=== PATIENT | female | born 1930 | race African-American/Black ===

== ENCOUNTER 2016-10-12 14:25 | Emergency (ER) | payer OTHER ==
[~2016-10-12] VITALS: Ht 154.9 cm; Wt 59.0 kg
--- NOTE | ~2016-10-12 | EKG ---
[place] [address] [place] [address] ELECTROCARDIOGRAM REPORT Name: CHARBEL APARICIO Room #[facility] [id number] Admission: 10/12/16 Attend Phys: Discharge: 10/12/16 Date of : 32 Report #: [id number] THIS REPORT FOR: //name// [facility] ED Test Date: 2016-10-12 Test Time: 15:08:29 Pat Name: CHARBEL APARICIO Department: Room: Gender: F [place] Attendant: Pati STARKS : 1930 Requested By: Nicolas Dahl Order Number: [id number] MD: Luis Felipe Sims Measurements Intervals [place] Rate: 76 P: 60 [place]: 170 QRS: 66 QRSD: 146 T: 12 QT: 421 QTc: 474 Interpretive Statements Sinus rhythm Right bundle branch block Baseline wander in lead(s) V1 Compared to ECG 01/14/2016 19:04:36 no significant change was found Electronically Signed On 10-13-2016 9:28:27 SEARCH PLANNER by Luis Felipe Sims [email or web address] <ELECTRONICALLY SIGNED> By: Luis Felipe Sims MD, [facility] 10/13/16 0928 1508 1508 Luis Felipe Sims MD, [facility] /EPI
[~2016-10-12 14:25] MED LIST: ALEVE220 MG PO; ALLERGY10 MG PO; ARICEPT 5 MG TAB5 MG PO; ARICEPT10 M1 PO; ASPIR 8181 M1 PO; ASPIRIN EC81 M1 PO; CIPROFLOXACIN500 M1 PO; CLARITIN10 MG PO; CLONIDINE HCL0.1 MG PO; COZAAR100 MG PO; EDARBYCLOR 40-1 EACH PO; FLEXERIL PO; HYDROCHLOROTH12.5 M1 PO; HYDROCHLOROTH12.5 M2 PO; IBUPROFEN 400400 M2 PO; IBUPROFEN 600600 M1 PO; KLOR-CON M20 PO; LEVAQUIN 500 M500 M2 PO; LEVOTHYROXINE 0.1 MG PO; LISINOPRIL10 MG PO; LOPRESSOR PO; LORTAB 5 MG/5001 TA1 PO; MICARDIS40 MG PO; MOBIC15 MG PO; OXYBUTYNIN 5 MG5 M2 PO; OXYCODONE HCL 55 MG PO; PHENERGAN 25 MG25 M1 PO; PYRIDIUM200 MG PO; ROBAXIN 750 MG750 M1 PO; SPIRONOLACT/HCT1 TA1; SPIRONOLACTONE25 M1 PO; SYNTHROID100 MCG PO; TENORMIN25 MG PO; TIZANIDINE HCL 22 M1 PO; TIZANIDINE HCL 22 MG PO; TRAMADOL 50 MG50 MG PO; TRIAMTERENE-HC1 EAC3 PO; TYLENOL325 MG PO; ZANAFLEX4 MG PO; ZOVIRAX400 MG PO; [UNRECOGNIZED DRUG - OTHER] TP
[2016-10-12] MEDS ORDERED: MICARDIS40 MG PO (16:19)
[2016-10-12] MEDS ORDERED: ASPIR 8181 MG PO (16:19)
[2016-10-12] MEDS ORDERED: ATENOLOL 25 MG25 M1 PO (16:20)
[2016-10-12 16:39] LABS: URINE BLOOD 2+ (Negative); URINE COLOR YELLOW; URINE GLUCOSE-RANDOM* NEGATIVE (Negative); URINE KETONES 1+ (Negative); URINE NITRITE NEGATIVE (Negative); URINE PROTEIN (DIPSTICK) 3+ (Negative); URINE SPECIFIC GRAVITY >= 1.030 (1.003-1.035)
[2016-10-12 16:46] LABS: ICTOTEST (BILI CONFIRMATORY) Negative (Negative); URINE BILIRUBIN NEGATIVE (Negative)
[2016-10-12 16:53] LABS: CASTS None Seen /LPF (None Seen); CRYSTALS None Seen /LPF (None Seen); SQUAMOUS 0-3 Few /LPF (0-3)
[2016-10-12 16:54] LABS: BACTERIA 1-9 Few /HPF (None Seen); URINE RBC 0-2 Rare /HPF (0-2); URINE WBC 0-5 Rare /HPF (0-5)
[2016-10-12 17:54] LABS: ABSOLUTE NEUTROPHILS 10.4 thou/uL (1.4-8.2); BASOPHILS 0.4 % (0.0-2.0); HEMATOCRIT 35.5 % (37.0-47.0); HEMOGLOBIN 11.9 gm/dL (12.0-15.0); LYMPHOCYTES 10.1 % (24.0-44.0); MCH 29.1 pg (26.0-34.0); MCHC 33.4 % (28.0-37.0); MCV 87.1 fL (80.0-100.0); MONOCYTES 11.9 % (1.0-8.0); PLATELET COUNT 248 thou/uL (150-400); POLYS 77.6 % (36.0-66.0); RBC 4.08 mil/uL (4.20-5.00); RDW 13.7 % (10.5-14.5); WBC 13.4 thou/uL (4.0-11.0)
[2016-10-12 17:57] LABS: MANUAL DIFF NO
[2016-10-12 18:01] LABS: ANION GAP 10 mmol/L (7-16); BUN 16 mg/dL (7-18); CALCIUM 9.2 mg/dL (8.5-10.1); CHLORIDE 97 mmol/L (98-107); CO2 26 mmol/L (21-32); CREATININE 1.1 mg/dL (0.6-1.3); GLUCOSE 89 mg/dL (70-99); POTASSIUM 3.6 mmol/L (3.5-5.1); SODIUM 133 mmol/L (136-145)
[2016-10-12 18:15] LABS: ALBUMIN 2.6 g/dL (3.4-5.0); ALKALINE PHOSPHATASE 74 U/L (46-116); MAGNESIUM 1.9 mg/dL (1.8-2.4); NT-PRO BRAIN NAT PEPTIDE 301 pg/mL (<300); SGOT 16 U/L (15-37); SGPT 18 U/L (30-65); TOTAL BILIRUBIN 0.5 mg/dL (<0.1-1.0); TOTAL PROTEIN 7.4 g/dL (6.4-8.2); TROPONIN-I < 0.04 ng/mL (<0.04-0.07)
== END 2016-10-12 19:10 | disposition home or self-care (01) ==
LOC: ER 14:25
PROVIDERS: Emergency Medicine
DX: S16.1XXA Strain of muscle, fascia and tendon at neck level, initial encounter (principal); M43.6 Torticollis; M54.2 Cervicalgia; M54.10 Radiculopathy, site unspecified; I10 Essential (primary) hypertension; E03.9 Hypothyroidism, unspecified; F03.90 Unspecified dementia, unspecified severity, without behavioral disturbance, psychotic disturbance, mood disturbance, and anxiety; Z90.710 Acquired absence of both cervix and uterus; Z88.0 Allergy status to penicillin; Z88.8 Allergy status to other drugs, medicaments and biological substances; Z88.7 Allergy status to serum and vaccine; X58.XXXA Exposure to other specified factors, initial encounter; Y93.9 Activity, unspecified; Y92.9 Unspecified place or not applicable; Y99.9 Unspecified external cause status

== ENCOUNTER 2016-10-14 12:32 | Emergency (ER) | payer OTHER ==
[~2016-10-14] VITALS: Ht 157.5 cm; Wt 59.0 kg
[~2016-10-14 12:32] MED LIST changes: +ASPIR 8181 MG PO; +ATENOLOL 25 MG25 M1 PO
[2016-10-14] MEDS ORDERED: TRAMADOL 50 MG50 MG PO (16:09)
[2016-10-14] MEDS ORDERED: SENOKOT-S1 TA1 PO (16:09)
== END 2016-10-14 16:20 | disposition home or self-care (01) ==
LOC: ER 12:32
DX: M54.12 Radiculopathy, cervical region (principal); Z90.710 Acquired absence of both cervix and uterus; I10 Essential (primary) hypertension; E03.9 Hypothyroidism, unspecified; F03.90 Unspecified dementia, unspecified severity, without behavioral disturbance, psychotic disturbance, mood disturbance, and anxiety; Z88.7 Allergy status to serum and vaccine; Z88.0 Allergy status to penicillin; Z88.8 Allergy status to other drugs, medicaments and biological substances

== ENCOUNTER 2017-03-26 17:34 | Emergency (ER) | payer OTHER ==
[~2017-03-26] VITALS: Ht 154.9 cm; Wt 59.0 kg
[~2017-03-26 17:34] MED LIST changes: +SENOKOT-S1 TA1 PO
[2017-03-26] MEDS ORDERED: VALIUM5 MG PO (20:11)
[2017-03-26] MEDS ORDERED: LIDODERM 5%1 PATC1 TRANSDERM (20:11)
== END 2017-03-26 20:31 | disposition home or self-care (01) ==
LOC: ER 17:34
DX: M62.838 Other muscle spasm (principal); Z90.710 Acquired absence of both cervix and uterus; I10 Essential (primary) hypertension; E03.9 Hypothyroidism, unspecified; F03.90 Unspecified dementia, unspecified severity, without behavioral disturbance, psychotic disturbance, mood disturbance, and anxiety; Z88.7 Allergy status to serum and vaccine; Z88.0 Allergy status to penicillin; Z88.1 Allergy status to other antibiotic agents

== ENCOUNTER 2017-09-04 14:30 | Emergency (ER) | payer OTHER ==
[~2017-09-04] VITALS: Ht 152.4 cm; Wt 61.2 kg
[~2017-09-04 14:30] MED LIST changes: +LIDODERM 5%1 PATC1 TRANSDERM; +VALIUM5 MG PO
[2017-09-04] MEDS ORDERED: SYNTHROID75 MCG PO (15:10)
[2017-09-04] MEDS ORDERED: TRAMADOL 50 MG50 MG PO (16:07)
== END 2017-09-04 16:39 | disposition home or self-care (01) ==
LOC: ER 14:30
DX: S16.1XXA Strain of muscle, fascia and tendon at neck level, initial encounter (principal); S29.012A Strain of muscle and tendon of back wall of thorax, initial encounter; I10 Essential (primary) hypertension; E03.9 Hypothyroidism, unspecified; F03.90 Unspecified dementia, unspecified severity, without behavioral disturbance, psychotic disturbance, mood disturbance, and anxiety; Z90.49 Acquired absence of other specified parts of digestive tract; Z88.7 Allergy status to serum and vaccine; Z88.8 Allergy status to other drugs, medicaments and biological substances; V43.12XA Car passenger injured in collision with other type car in nontraffic accident, initial encounter; Y93.89 Activity, other specified; Y92.89 Other specified places as the place of occurrence of the external cause; Z88.0 Allergy status to penicillin; Y99.8 Other external cause status

== ENCOUNTER 2017-11-05 15:24 | Emergency (ER) | payer OTHER ==
[~2017-11-05] VITALS: Ht 154.9 cm; Wt 62.6 kg
--- NOTE | ~2017-11-05 | EKG ---
[place] [address] [place] [address] ELECTROCARDIOGRAM REPORT Name: CHARBEL APARICIO [facility]: [facility] [id number] Admission: 11/05/17 Attend Phys: Discharge: Date of : 32 Report #: [id number] THIS REPORT FOR: //name// [facility] ED Test Date: 2017-11-05 Test Time: 16:52:44 Pat Name: CHARBEL APARICIO Department: Room: Gender: F Candy Roller: Pati RODRIGUEZ : 1930 Requested By: Radha Orlando Order Number: [id number] MD: Luis Felipe Sims Measurements Intervals [place] Rate: 62 P: 62 [place]: 174 QRS: 67 QRSD: 147 T: 36 QT: 423 QTc: 430 Interpretive Statements Sinus rhythm Right bundle branch block Compared to ECG 10/12/2016 15:08:29 No significant changes Electronically Signed On 11-05-2017 17:39:56 NON DESTRUCTIVE TESTER by Luis Felipe Sims [email or web address] <ELECTRONICALLY SIGNED> By: Luis Felipe Sims MD, [facility] 11/05/17 1739 1652 1652 Luis Felipe Sims MD, FACC /EPI
[~2017-11-05 15:24] MED LIST changes: +SYNTHROID75 MCG PO
[2017-11-05 16:28] LABS: HEMOGLOBIN 13.5 gm/dL (12.0-15.0); MCH 29.4 pg (26.0-34.0); MCHC 33.8 g/dL (28.0-37.0); RBC 4.6 mil/uL (4.20-5.00); RDW 14.4 % (10.5-14.5); WBC 11.5 thou/uL (4.0-11.0)
[2017-11-05 16:44] LABS: CALCIUM 9.7 mg/dL (8.5-10.1); CREATININE 1.3 mg/dL (0.6-1.0); POTASSIUM 3.6 mmol/L (3.5-5.1)
[2017-11-05 17:19] LABS: URINE BILIRUBIN NEGATIVE (Negative); URINE BLOOD TRACE (Negative); URINE CLARITY CLEAR; URINE COLOR YELLOW; URINE GLUCOSE-RANDOM* NEGATIVE (Negative); URINE KETONES NEGATIVE (Negative); URINE LEUKOCYTES NEGATIVE (Negative); URINE NITRITE NEGATIVE (Negative); URINE PROTEIN (DIPSTICK) 2+ (Negative); URINE SPECIFIC GRAVITY 1.025 (1.005-1.035)
[2017-11-05 17:27] LABS: BACTERIA 1-9 Few /HPF (None Seen); CASTS None Seen /LPF (None Seen); CRYSTALS None Seen /LPF (None Seen); SQUAMOUS 4-10 Moderate /LPF (0-3); URINE RBC 0-2 Rare /HPF (0-2); URINE WBC None Seen /HPF (0-5)
[2017-11-05] MEDS ORDERED: HYDROCODONE-AP1 EAC6 PO (17:40)
[2017-11-05] MEDS ORDERED: PREDNISONE 20 M20 MG PO (17:53)
[2017-11-05 18:00] VITALS: BP 111/71
== END 2017-11-05 18:01 | disposition home or self-care (01) ==
LOC: ER 15:24
PROVIDERS: Physician Assistant
DX: M25.552 Pain in left hip (principal); M25.551 Pain in right hip; M51.26 Other intervertebral disc displacement, lumbar region; M51.36 Other intervertebral disc degeneration, lumbar region; I10 Essential (primary) hypertension; E03.9 Hypothyroidism, unspecified; F03.90 Unspecified dementia, unspecified severity, without behavioral disturbance, psychotic disturbance, mood disturbance, and anxiety; Z88.0 Allergy status to penicillin; Z90.710 Acquired absence of both cervix and uterus; Z88.7 Allergy status to serum and vaccine; Z88.8 Allergy status to other drugs, medicaments and biological substances

== ENCOUNTER 2018-02-14 15:35 | Emergency (ER) | payer OTHER ==
[~2018-02-14] VITALS: Ht 154.9 cm; Wt 60.8 kg
--- NOTE | ~2018-02-14 | EKG ---
[place] [address] [facility] [place] [address] ELECTROCARDIOGRAM REPORT Name: CHARBEL APARICIO Room #: DEP Darci#: [id number] Admission: 02/14/18 Attend Phys: Discharge: 02/14/18 Date of : 32 Report #: [id number] THIS REPORT FOR: //name// [facility] ED Test Date: 2018-02-14 Test Time: 16:08:35 Pat Name: CHARBEL APARICIO Department: Room: Gender: F Transportation Broker: GWENDOLYN : 1930 Requested By: Trevin Stauffer Order Number: [id number] MD: Luis Felipe Sims Measurements Intervals [place] Rate: 56 P: 61 [place]: 183 QRS: 67 QRSD: 148 T: 35 QT: 459 QTc: 444 Interpretive Statements Sinus rhythm Right bundle branch block Compared to ECG 11/05/2017 16:52:44 No significant changes Electronically Signed On 02-15-2018 7:44:31 CDT by Luis Felipe Sims [email or web address] <ELECTRONICALLY SIGNED> By: Luis Felipe Sims MD, [facility] 02/15/18 0744 1608 1608 Luis Felipe Sims MD, FACC /EPI
[~2018-02-14 15:35] MED LIST changes: +HYDROCODONE-AP1 EAC6 PO; +PREDNISONE 20 M20 MG PO
[2018-02-14 16:14] LABS: URINE BILIRUBIN NEGATIVE (Negative); URINE BLOOD TRACE (Negative); URINE CLARITY CLEAR; URINE COLOR YELLOW; URINE GLUCOSE-RANDOM* NEGATIVE (Negative); URINE KETONES NEGATIVE (Negative); URINE LEUKOCYTES-REFLEX NEGATIVE (Negative); URINE NITRITE-REFLEX NEGATIVE (Negative); URINE PROTEIN (DIPSTICK) 2+ (Negative); URINE SPECIFIC GRAVITY >= 1.030 (1.005-1.035); URINE UROBILINOGEN 0.2 E.U./dl (0.2-1.0)
[2018-02-14 16:25] LABS: BACTERIA-REFLEX None Seen /HPF (None Seen); CASTS None Seen /LPF (None Seen); CRYSTALS None Seen /LPF (None Seen); SQUAMOUS 0-3 Few /LPF (0-3); URINE RBC 0-2 Rare /HPF (0-2); URINE WBC-REFLEX 0-5 Rare /HPF (0-5)
[2018-02-14] MEDS ORDERED: FLEXERIL PO (17:01)
== END 2018-02-14 17:30 | disposition home or self-care (01) ==
LOC: ER 15:35
PROVIDERS: Emergency Medicine
DX: M54.9 Dorsalgia, unspecified (principal); M25.511 Pain in right shoulder; I10 Essential (primary) hypertension; E03.9 Hypothyroidism, unspecified; F03.90 Unspecified dementia, unspecified severity, without behavioral disturbance, psychotic disturbance, mood disturbance, and anxiety; Z88.0 Allergy status to penicillin; Z88.8 Allergy status to other drugs, medicaments and biological substances

== ENCOUNTER 2018-03-31 13:16 | Emergency (ER) | payer OTHER ==
[~2018-03-31] VITALS: Ht 154.9 cm; Wt 59.0 kg
--- NOTE | ~2018-03-31 | EKG ---
[place] [address] [facility] [place] [address] ELECTROCARDIOGRAM REPORT Name: CHARBEL APARICIO [facility] [id number] Admission: 03/31/18 Attend Phys: Discharge: 03/31/18 Date of : 32 Report #: [id number] THIS REPORT FOR: //name// [facility] ED Test Date: 2018-03-31 Test Time: 16:05:19 Pat Name: CHARBEL APARICIO Department: Room: Gender: F Campaign Coordinator: jlambertz : 1930 Requested By: Jody Zendejas Order Number: [id number] MD: Luis Felipe Sims Measurements Intervals [place] Rate: 68 P: 69 [place]: 192 QRS: 78 QRSD: 144 T: 44 QT: 439 QTc: 467 Interpretive Statements Sinus rhythm Right bundle branch block Compared to ECG 02/14/2018 16:08:35 No significant changes Electronically Signed On 04-01-2018 7:57:20 CDT by Luis Felipe Sims [email or web address] <ELECTRONICALLY SIGNED> By: Luis Felipe Sims MD, [facility] 04/01/18 0757 1605 1605 Luis Felipe Sims MD, FACC /EPI
[2018-03-31 15:04] LABS: ABSOLUTE NEUTROPHILS 4.6 thou/uL (1.4-8.2); BASOPHILS 0.7 % (0.0-2.0); EOSINOPHILS 0.7 % (0.0-3.0); HEMATOCRIT 41.7 % (37.0-47.0); HEMOGLOBIN 13.8 gm/dL (12.0-15.0); LYMPHOCYTES 20.2 % (24.0-44.0); MCH 29.3 pg (26.0-34.0); MCV 88.8 fL (80.0-100.0); MONOCYTES 7.4 % (1.0-8.0); PLATELET COUNT 228 thou/uL (150-400); RDW 14.6 % (10.5-14.5); WBC 6.5 thou/uL (4.0-11.0)
[2018-03-31 15:18] LABS: CALCIUM 9.5 mg/dL (8.5-10.1); CREATININE 1.1 mg/dL (0.6-1.0); POTASSIUM 4.2 mmol/L (3.5-5.1)
[2018-03-31 15:22] LABS: ALBUMIN 3.5 g/dL (3.4-5.0); TOTAL BILIRUBIN 0.4 mg/dL (<0.1-1.0); TOTAL PROTEIN 7.8 g/dL (6.4-8.2)
== END 2018-03-31 16:15 | disposition home or self-care (01) ==
LOC: ER 13:16
PROVIDERS: Nurse Practitioner Family
DX: G44.209 Tension-type headache, unspecified, not intractable (principal); I10 Essential (primary) hypertension; E03.9 Hypothyroidism, unspecified; F03.90 Unspecified dementia, unspecified severity, without behavioral disturbance, psychotic disturbance, mood disturbance, and anxiety; Z90.710 Acquired absence of both cervix and uterus; Z88.7 Allergy status to serum and vaccine; Z88.0 Allergy status to penicillin; Z88.8 Allergy status to other drugs, medicaments and biological substances

== ENCOUNTER 2018-10-19 20:06 | Emergency (ER) | payer OTHER ==
[~2018-10-19] VITALS: Ht 154.9 cm; Wt 61.2 kg
[2018-10-19] MEDS ORDERED: PERCOCET 5-3251 EACH PO (20:21)
[2018-10-19 21:21] LABS: ABSOLUTE NEUTROPHILS 3.6 thou/uL (1.4-8.2); BASOPHILS 0.8 % (0.0-2.0); EOSINOPHILS 4.2 % (0.0-3.0); HEMATOCRIT 38.4 % (37.0-47.0); HEMOGLOBIN 12.9 gm/dL (12.0-15.0); LYMPHOCYTES 29.8 % (24.0-44.0); MCH 29.5 pg (26.0-34.0); MCHC 33.5 g/dL (28.0-37.0); MCV 88.2 fL (80.0-100.0); MONOCYTES 11.6 % (1.0-8.0); PLATELET COUNT 251 thou/uL (150-400); POLYS 53.6 % (36.0-66.0); RBC 4.35 mil/uL (4.20-5.00); RDW 14.8 % (10.5-14.5); WBC 6.8 thou/uL (4.0-11.0)
[2018-10-19 21:28] LABS: ANION GAP 8 mmol/L (7-16); BUN 22 mg/dL (7-18); CALCIUM 9.3 mg/dL (8.5-10.1); CHLORIDE 106 mmol/L (98-107); CO2 25 mmol/L (21-32); CREATININE 1.1 mg/dL (0.6-1.0); GLUCOSE 93 mg/dL (74-106); POTASSIUM 3.9 mmol/L (3.5-5.1); SODIUM 139 mmol/L (136-145)
[2018-10-19 21:39] LABS: ALBUMIN 3.3 g/dL (3.4-5.0); SGOT 25 U/L (15-37); SGPT 23 U/L (30-65); TOTAL BILIRUBIN 0.2 mg/dL (<0.1-1.0); TOTAL PROTEIN 7.3 g/dL (6.4-8.2); TROPONIN-I <0.06 ng/mL (<0.06)
[2018-10-19] MEDS ORDERED: ZANAFLEX2 MG PO (22:35)
[2018-10-19 22:41] VITALS: BP 156/61
--- NOTE | 2018-10-21 08:29 | EKG ---
[place] [address] [place] [address] ELECTROCARDIOGRAM REPORT Name: CHARBEL APARICIO Room #: [facility] [id number] Admission: 10/19/18 Attend Phys: Discharge: 10/19/18 Date of : 32 Report #: [id number] THIS REPORT FOR: //name// [facility] ED Test Date: 2018-10-19 Test Time: 20:29:48 Pat Name: CHARBEL APARICIO Department: Room: Gender: F Cell Attendant: JUAN : 1930 Requested By: Nisa Fatima Order Number: [id number] MD: Luis Felipe Sims Measurements Intervals [place] Rate: 79 P: 63 [place]: 172 QRS: 71 QRSD: 142 T: 32 QT: 425 QTc: 488 Interpretive Statements Sinus rhythm Right bundle branch block Compared to ECG 03/31/2018 16:05:19 No significant change was found Electronically Signed On 10-21-2018 8:29:21 LAND SURVEY TECHNICIAN by Luis Felipe Sims [email or web address] <ELECTRONICALLY SIGNED> By: Luis Felipe Sims MD, [facility] 10/21/18 0829 28 28 Luis Felipe Sims MD, FACC /EPI
== END 2018-10-19 22:51 | disposition home or self-care (01) ==
LOC: ER 20:06
PROVIDERS: Student in an Organized Health Care Education/Training Program
DX: M62.830 Muscle spasm of back (principal); I10 Essential (primary) hypertension; E03.9 Hypothyroidism, unspecified; F03.90 Unspecified dementia, unspecified severity, without behavioral disturbance, psychotic disturbance, mood disturbance, and anxiety; Z88.7 Allergy status to serum and vaccine; Z88.0 Allergy status to penicillin; Z88.8 Allergy status to other drugs, medicaments and biological substances; Z90.710 Acquired absence of both cervix and uterus

== ENCOUNTER → 2018-12-25 | Outpatient (CLI) | payer OTHER ==
[~2018-12-25] VITALS: Ht 154.9 cm; Wt 61.7 kg
[~2018-12-25] MED LIST changes: +ARICEPT10 MG PO; +NORCO 5-325 TA1 EACH PO; +PERCOCET 5-3251 EACH PO; +TELMISARTAN80 MG PO; +ZANAFLEX2 MG PO
--- NOTE | ~2018-12-25 | HPC ---
[facility] [place] [address] PAIN MANAGEMENT CONSULTATION Name: CHARBEL APARICIO [facility] [id number] Admission: 12/25/18 ������������������ Attend Phys: Jessica Woodard MD Discharge: ������������������ Date of : 32 Report #: [id number] THIS REPORT FOR: //name// CC: SOFI physician/PCP Jessica Woodard DATE OF SERVICE: 12/25/2018 CHIEF COMPLAINT: Return to the pain clinic because of low back pain. HISTORY: The patient is an 88-year-old female, who has been seen in the pain clinic in the past by Dr. Amadou Prescott. This is my first visit with the patient. She was initially seen in 2015. At that time, she has had some episodes of low back pain. She was found to have sacroiliac joint dysfunction. Also, has had some lumbar radicular symptoms. She suffers from chronic renal insufficiency. She has not been able to take nonsteroidal anti-inflammatory medications. She has had physical therapy in the past. She still tries to stay active. She went to the Emergency Room because of upper back pain, this was in October. She notes that her pain continues to wax and wane. She complained at that time about some stabbing pain under her shoulder blade. It is also felt that there was some occasional numbness in her right arm. She also has low back pain. She has a sensation in her calves of a crawling sensation. She rates her pain overall as an 8/10. At this juncture, she is not sure exactly what exacerbates it makes the pain worse. PAST MEDICAL HISTORY: 1. Hypothyroidism. 2. Dementia. 3. Bladder control problems. 4. Back problems. 5. Hypertension. PAST SURGICAL HISTORY: Hysterectomy. CURRENT MEDICATIONS: Loratadine 10 mg, lisinopril 10 mg, aspirin 81 mg chewable, atenolol 25 mg, Synthroid 75 mcg, and hydrochlorothiazide 12.5 mg. ALLERGIES: INFLUENZA VACCINES, PENICILLIN, AND AMLODIPINE. SOCIAL HISTORY: She is retired. REVIEW OF SYSTEMS: Decreased appetite, fatigue, wears glasses, ____ thyroid disease. PAIN CLINIC ASSESSMENT AND PQRS: 1. Osteoarthritis. The patient is not being treated for osteoarthritis. [facility] [address] [place] [address] PAIN MANAGEMENT CONSULTATION Name: CHARBEL APARICIO Room #: REG [facility]#: [id number] Admission: 12/25/18 ������������������ Attend Phys: Jessica Woodard MD Discharge: ������������������ Date of : 32 Report #: [id number] 2. The patient is not being treated for rheumatoid arthritis. 3. Pain intensity is 8/10. 4. Fall risk. The patient has not fallen in the last 3 months. 5. Blood thinner. The patient is not on a blood thinning medication. 6. Hypertension. The patient is being treated for hypertension. 7. Opioids greater than 6 weeks. The patient is not on a regular opioid regimen. 8. Risk for opioid, zero/low. 9. Functional assessment tool, 50/70. 10. Recreational drug use. The patient denies use of recreational drugs. 11. Tobacco. The patient has never smoked. 12. Alcohol: The patient denies use of alcoholic beverages. PHYSICAL EXAMINATION: GENERAL: The patient is a well-developed, well-nourished black female. She is accompanied by her daughter. She is alert and oriented x 3. Her daughter helps with the history. Height is 5 feet 1 inches, weight is 136 pounds, and BMI is 25.7. VITAL SIGNS: Blood pressure is 152/67, pulse is 69, respiratory rate is 16, and room air saturation is 97%. NECK: Without adenopathy or JVD. HEART: Regular rate. ABDOMEN: Nontender. EXTREMITIES: Upper extremity muscle strength is judged to be 4+/5 for the major muscle groups in the upper extremity. She complains of some pain in the shoulders as well as in the low back area. The patient is without significant scoliosis or kyphosis. LABORATORY DATA: On 08/22/2015, x-ray of lumbar spine shows lumbar spondylosis. There are subluxations at L4-L5 and L5-S1. IMPRESSION: 1. Low back pain with a sensation of crawling pain in her calves. 2. Sharp pain in the left as well as right shoulder. 3. Dementia. 4. Bladder control problems. 5. Back problems. 6. Right knee pain. 7. Degenerative joint disease, generalized. 8. Chronic glomerulonephritis. 9. Back pain, chronic. 10. Cervicalgia. 11. Neck pain. 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 13. Polymyalgia rheumatica. 14. Hypothyroidism. [address] [address] PAIN MANAGEMENT CONSULTATION Name: CHARBEL APARICIO Room #: REG CLEarlene Bejarano#: [id number] Admission: 12/25/18 ������������������ Attend Phys: Jessica Woodard MD Discharge: ������������������ Date of : 32 Report #: [id number] 15. Hypertension. RECOMMENDATIONS: We have discussed treatment options with the patient and with her daughter. We will try conservative approach and the patient has been given a script for tramadol 50 mg 1 p.o. b.i.d. Should injections be needed in the future, we can give that a try. Again, we will try the most conservative approach. Her daughter is in agreement as well as the patient. A script for tramadol has been written. We would like to thank you for letting us to participate in her care. We hope she continues to improve. ��������������������������������������������� ���������������������������������������� By: ��������������������������������������������� 2204 0721 Jessica Woodard MD /QUIN
[2018-12-25 10:16] VITALS: BP 152/67
--- NOTE | 2018-12-25 10:33 | NUR ---
Pain Clinic Assessment: 1. History of Osteoarthritis: Not Applicable History of Rheumatoid Arthritis: Not Applicable 2. Height: 5 ft. 1 in. 154.9 cm. Weight: 136.0 lb. oz. 61.689 kg. Patient's BMI: 25.7 3. Vital Signs: BP: 152/67 Pulse: 69 Resp: 16 Temp: 02 Sat: 97 ECG Mon: 4. Pain Intensity: 8 5. Fall Risk: Dizziness: N Needs help standing or walking: N Fallen in the last 3 months: N Fall risk comments: 6. Patient on Blood Thinner: None 7. History of Hypertension: Y 8. Opioid Therapy greater than 6 weeks: N Opiate Contract Signed: 9. Risk Assessment Tool Provided: 0-LOW 10. Functional Assessment Tool: 50/70 11. Recreational Drug Use: Never Drug Type: Tobacco Use: Never Smoker Tobacco Type: Amount or Packs/day: How Many Years: Alcohol Use: No Frequency: Quant:
== END ==
LOC: PAIN 07:11
DX: M19.90 Unspecified osteoarthritis, unspecified site (principal); M25.512 Pain in left shoulder; M54.2 Cervicalgia; M25.561 Pain in right knee; G89.29 Other chronic pain; N03.9 Chronic nephritic syndrome with unspecified morphologic changes; E03.9 Hypothyroidism, unspecified; I10 Essential (primary) hypertension; F03.90 Unspecified dementia, unspecified severity, without behavioral disturbance, psychotic disturbance, mood disturbance, and anxiety; G47.419 Narcolepsy without cataplexy; M35.3 Polymyalgia rheumatica; R39.81 Functional urinary incontinence; Z79.899 Other long term (current) drug therapy

== ENCOUNTER 2019-01-05 15:53 | Observation (INO) | payer OTHER ==
[~2019-01-05] VITALS: Ht 157.5 cm; Wt 61.7 kg
[2019-01-05 15:54] VITALS: BP 128/104
[2019-01-05 16:25] LABS: ABSOLUTE NEUTROPHILS 6.7 thou/uL (1.4-8.2); BASOPHILS 0.4 % (0.0-2.0); EOSINOPHILS 1.2 % (0.0-3.0); HEMATOCRIT 42.6 % (37.0-47.0); HEMOGLOBIN 13.9 gm/dL (12.0-15.0); LYMPHOCYTES 14.5 % (24.0-44.0); MCH 29.2 pg (26.0-34.0); MCHC 32.7 g/dL (28.0-37.0); MCV 89.3 fL (80.0-100.0); MONOCYTES 9.9 % (1.0-8.0); PLATELET COUNT 218 thou/uL (150-400); RBC 4.77 mil/uL (4.20-5.00); RDW 14.3 % (10.5-14.5); WBC 9.1 thou/uL (4.0-11.0)
[2019-01-05 16:28] LABS: ANION GAP 11 mmol/L (7-16); BUN 21 mg/dL (7-18); CALCIUM 10.1 mg/dL (8.5-10.1); CHLORIDE 106 mmol/L (98-107); CO2 26 mmol/L (21-32); CREATININE 1.2 mg/dL (0.6-1.0); GLUCOSE 108 mg/dL (74-106); POTASSIUM 3.7 mmol/L (3.5-5.1); SODIUM 143 mmol/L (136-145)
[2019-01-05 16:39] LABS: ALBUMIN 3.6 g/dL (3.4-5.0); SGOT 23 U/L (15-37); SGPT 19 U/L (30-65); TOTAL BILIRUBIN 0.4 mg/dL (<0.1-1.0); TOTAL PROTEIN 7.9 g/dL (6.4-8.2); TROPONIN-I <0.06 ng/mL (<0.06)
[2019-01-05 16:52] LABS: URINE BILIRUBIN NEGATIVE (Negative); URINE BLOOD TRACE (Negative); URINE CLARITY CLEAR; URINE COLOR YELLOW; URINE GLUCOSE-RANDOM* NEGATIVE (Negative); URINE KETONES NEGATIVE (Negative); URINE LEUKOCYTES NEGATIVE (Negative); URINE NITRITE NEGATIVE (Negative); URINE PROTEIN (DIPSTICK) 2+ (Negative); URINE SPECIFIC GRAVITY >= 1.030 (1.005-1.035); URINE UROBILINOGEN 0.2 E.U./dl (0.2-1.0)
[2019-01-05 17:02] LABS: HYALINE CASTS 0-3 Few /LPF (None Seen); MUCUS >6 Heavy strn/LPF (None Seen); SQUAMOUS 0-3 Few /LPF (0-3)
[2019-01-05 17:03] LABS: BACTERIA None Seen /HPF (None Seen); CRYSTALS None Seen /LPF (None Seen); URINE RBC None Seen /HPF (0-2); URINE WBC 0-5 Rare /HPF (0-5)
[2019-01-05 18:05] VITALS: BP 135/75
[2019-01-05 18:38] VITALS: BP 138/54
--- NOTE | 2019-01-06 01:03 | EKG ---
[place] [address] [facility] [place] [address] ELECTROCARDIOGRAM REPORT Name: CHARBEL APARICIO Room #: 429-P [facility] M.R.#: [id number] ������������������ Admission: 01/05/19 ������������������ Attend Phys: Albert Earl MD Discharge: ������������������ Date of : 32 Report #: [id number] ����������������������������������������������������������������� [id number] THIS REPORT FOR: //name// [facility] ED Test Date: 2019-01-05 Test Time: 16:12:28 Pat Name: CHARBEL APARICIO Department: Room: 429 Gender: F Catalyst Operator: JULIO : 1930 Requested By: Yasemin Hairston Order Number: [id number] MD: Oskar Bowen Measurements Intervals [place] Rate: 72 P: 75 [place]: 169 QRS: 80 QRSD: 144 T: 35 QT: 439 QTc: 481 Interpretive Statements Sinus rhythm Right bundle branch block Nonspecific ST/T wave changes Compared to ECG 10/19/2018 20:29:48 no significant changes Electronically Signed On 01-06-2019 1:02:50 CDT by Oskar Bowen [email or web address] ��������������������������������������������� <ELECTRONICALLY SIGNED> ���������������������������������������� By: Oskar Bowen MD ��������������������������������������������� 01/06/19 0102 11 11 Oskar Bowen MD /EPI
--- NOTE | 2019-01-06 02:17 | NUR ---
PT ARRIVED ON UNIT FROM ER AT 1830. COMES FROM HOME WITH DAUGHTER. ADMITTED AFTER A SYNCOPAL EPISODE AT HOME. DENIES PAIN. WALKED TO THE BATHROOM WITH ASSIST TIMES ONE HOWEVER ON WAY BACK FROM BATHROOM HER LEGS DID BUCKLE SLIGHTLY. A&O BUT FORGETFUL DUE TO DEMENTIA. RESTING COMFORTABLY. NO NEEDS VOICED. CALL LIGHT WITHIN REACH. WILL CONTINUE TO PROVIDE FREQUENT OBSERVATION.
[2019-01-06 03:19] VITALS: BP 133/70
[2019-01-06 05:27] LABS: HEMATOCRIT 36.9 % (37.0-47.0); HEMOGLOBIN 12.2 gm/dL (12.0-15.0); MCH 29.2 pg (26.0-34.0); MCHC 33.2 g/dL (28.0-37.0); MCV 88.1 fL (80.0-100.0); RBC 4.19 mil/uL (4.20-5.00); RDW 14.4 % (10.5-14.5); WBC 8.1 thou/uL (4.0-11.0)
[2019-01-06 05:43] LABS: CALCIUM 9.2 mg/dL (8.5-10.1); CREATININE 1.1 mg/dL (0.6-1.0); POTASSIUM 3.9 mmol/L (3.5-5.1); TOTAL BILIRUBIN 0.4 mg/dL (<0.1-1.0); TOTAL PROTEIN 6.7 g/dL (6.4-8.2)
[2019-01-06 08:04] VITALS: BP 145/80
--- NOTE | 2019-01-06 12:00 | NUR ---
ASSESSMENT-PT LIVES AT HOME WITH HER YOUNGEST DTR. PT SAYS SHE HAS 5 DTRS AND 3 SONS IN THE AREA. SHE SAYS HER GIRLS ARE ALWAYS TRYING TO TELL HER WHAT SHE CAN AND CANNOT DO. PT WALKS ON HER OWN AND DOES HER OWN ADLS. PT DOES NOT DRIVE. SHE HAS HAD CHCS IN THE PAST. THEY LIVE IN A SPLIT LEVEL HOME. PT SAYS SHE DOES HER OWN LAUNDRY WHICH IS LOCATED IN THE GARAGE DOWN 4-5 STEPS. HER DTRS DO THE MAJORITY OF THE COOKING. PT VOICES NO DC NEEDS AT THIS TIME. FOLLOWING TO ASSIST WITH DC PLANNING.
[2019-01-06] MEDS ORDERED: TYLENOL EXTRA500 MG PO (12:22)
[2019-01-06] MEDS ORDERED: MICARDIS40 MG PO (12:22)
[2019-01-06 13:38] LABS: PROT/CREAT RATIO 0.4; URINE CREATININE-RANDOM* 182.7 mg/dL; URINE PROTEIN-RANDOM* 66.7 mg/dL (<11.9)
[2019-01-06 15:14] VITALS: BP 145/80
--- NOTE | 2019-01-06 15:16 | NUR ---
PT. DISCHARGING TODAY TO HOME WITH HH. NOTIFIED WILLIAM AT [facility] OF REFERRAL AND SHE CAN ACCEPT PT. DC ORDERS/SUMMARY TO [facility] AND WILLIAM IN ADM WILL NOTIFY PT. TIME OF VISITS.
[2019-01-06 15:46] VITALS: BP 145/80
--- NOTE | 2019-01-08 11:20 | HC ---
[facility] [place] [address] CONSULTATION Name: CHARBEL APRAICIO Room #: 429-P [facility].#: [id number] Admission: 01/05/19 ������������������ Attend Phys: Albert Earl MD Discharge: 01/06/19 ������������������ Date of : 32 Report #: [id number] THIS REPORT FOR: //name// CC: Albert Lay DATE OF SERVICE: 01/06/2019 NEPHROLOGY CONSULTATION: REASON FOR CONSULTATION: Chronic kidney disease. HISTORY OF PRESENT ILLNESS: The patient followed in our office by Dr. 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 She was admitted with a presyncopal episode of nausea and vomiting after being in a hot stuffy car earlier in the day post-evangelical. PAST MEDICAL HISTORY: Includes chronic kidney disease, membranous nephropathy, hypertension and dementia. FAMILY HISTORY: Unreliable. 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 HOME MEDICATIONS: As listed include 81 mg aspirin daily, donepezil 10 mg daily, hydrochlorothiazide 12.5 mg daily, hydrocodone, Synthroid 75 mcg daily, telmisartan 80 mg daily, Zanaflex 2 mg q. 8 hours p.r.n., tramadol 50 mg q. 6 p.r.n. pain. REVIEW OF SYSTEMS: GENERAL: Difficult due to her being a poor historian. EYES: Her vision appears to be okay. ENT: Hearing okay, swallows okay. Denies mouth sores. ENDOCRINE: No diabetes. RESPIRATORY: Denies shortness of air, pleuritic pain. CARDIAC: Denies chest pain, angina or arrhythmias. GASTROINTESTINAL: Apparently, did have a spell of vomiting yesterday. No nausea at the current time. GENITOURINARY: Good urinary stream. NEUROLOGIC: She has dementia, but apparently is up and about. MUSCULOSKELETAL: She has chronic low back pain. PHYSICAL EXAMINATION: GENERAL: This is a reasonably well-appearing elderly patient in [address] [place] [address] CONSULTATION Name: CHARBEL APARICIO Room #: 429-P [facility] M..#: [id number] Admission: 01/05/19 ������������������ Attend Phys: Albert Earl MD Discharge: 01/06/19 ������������������ Date of : 32 Report #: [id number] distress. SKIN: Unremarkable. SKELETAL: Well developed, well nourished. No amputations. HEENT: Extraocular movements are full. No scleral icterus. Hearing and vision intact. Mucous membranes moist. Tongue, buccal mucosa are benign.: Supple without carotid bruits. CHEST: Clear to auscultation. HEART: Regular. ABDOMEN: Soft and nontender. EXTREMITIES: Show no peripheral edema. NEUROLOGIC: Shows just confusion, moves all extremities and sensory, motor examination is symmetric. LABORATORY DATA: Creatinine is 1.2, EGFR about 55. Urinalysis did show 2+ proteinuria. ASSESSMENT: 1. Presyncopal episode. Medications may need adjustment. This could simply be a reaction to getting overheated and volume depleted. She seems to be doing better today. 2. Dementia. 3. Chronic kidney disease, possibly has membranous nephropathy. I will review office records. We will check urine protein studies. 4. History of hypertension. ��������������������������������������������� <ELECTRONICALLY SIGNED> ���������������������������������������� By: Mark Torres MD ��������������������������������������������� 01/08/19 1120 0858 0326 Mark Torres MD /nt
--- NOTE | 2019-01-14 19:48 | H ---
[facility] [place] [address] [place] [address] HISTORY AND PHYSICAL Name: CHARBEL APARICIO Room #: 429-P [facility] Joe Bejarano#: [id number] Admission: 01/05/19 ������������������ Attend Phys: Albert Earl MD Discharge: 01/06/19 ������������������ Date of : 32 Report #: [id number] THIS REPORT FOR: //name// CC: Albert Lay DATE OF SERVICE: 01/05/2019 REASON FOR ADMISSION: Syncope. REASON FOR PRESENTATION: Syncope. HISTORY OF PRESENT ILLNESS: This is an 88-year-old with history of dementia, hypertension, membranous nephropathy with chronic kidney disease. She was at christianity today. She then stopped by a grocery store with her daughter. She waited for about 10 minutes and she waited in the car under the current weather condition. She felt somewhat warm. Then, she went home and was on the couch. While in the couch, she did not feel good. She then had an episode of vomiting and blacked out. Family brought her to the Emergency Room. She denies any history of chest pain. No shortness of breath. No numbness or weakness in any part of her body. No neurological symptoms. No cardiac symptoms. No upper respiratory tract infection symptoms. This is the first time that this happened to her. In terms of medical problems, she is known to have dementia, thyroid problems, membranous nephropathy and is followed by Dr. Jaki Chacon in the clinic. She is maintained on hydrochlorothiazide, olmesartan or telmisartan. She was recently switched from atenolol to metoprolol. No other new changes in the medications. She was incontinent of bowel during the syncopal episode. She does not have any previous cardiac history. PAST MEDICAL HISTORY: 1. Hypertension. 2. Hypothyroid: 3. Post hysterectomy. 4. Membranous nephropathy. 5. Chronic kidney disease. PAST SURGICAL HISTORY: 1. Temporal artery biopsy. 2. Multiple EGDs and colonoscopies. SOCIAL HISTORY: She is independent. No drug or alcohol abuse. 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 MEDICATIONS: 1. Aricept. 2. Tizanidine. [facility] [address] [place] [address] HISTORY AND PHYSICAL Name: CHARBEL APARICIO Room #: 429-P [facility] Joe Bejarano#: [id number] Admission: 01/05/19 ������������������ Attend Phys: Albert Earl MD Discharge: 01/06/19 ������������������ Date of : 32 Report #: [id number] 3. Aspirin. 4. Hydrocodone. 5. Levothyroxine. 6. Telmisartan. 7. Hydrochlorothiazide. REVIEW OF SYSTEMS: GENERAL: No fever or chills. CARDIOVASCULAR: No chest pain or palpitation. GASTROINTESTINAL: Significant for vomiting. Also, lost her sphincter control over the bowel. GENITOURINARY: No frequency, no urgency. She does have incontinence of her bladder for a long time and this is not new. NEUROLOGICAL: As per history of present illness. PHYSICAL EXAMINATION: VITAL SIGNS: Temperature is 37.4, pulse is 70, blood pressure is 135/75. HEAD AND NECK: No bruit, no thyromegaly. CHEST: Decreased air entry bilaterally, but no crackles. CARDIOVASCULAR: No rub detected. Regular. No murmur. ABDOMEN: Soft, nontender with no hepatosplenomegaly. EXTREMITIES: Lower extremities, no edema. LABORATORY DATA: Essentially nonremarkable CBC. Chemistry with a creatinine of 1.2. Urine with +2 protein. ASSESSMENT, IMPRESSION AND PLAN: 1. Syncope. 2. Hypertension. 3. Membranous nephropathy. 4. Dementia. 5. Hypothyroid. 6. The symptoms are not really specific and this could be due to so many reasons. EKG and troponins are negative so far. We will proceed with a CT of the head. 7. If needed, I will consult Cardiology and Neurology for her syncope. 8. Watch blood pressure and resume telmisartan for her membranous nephropathy. 9. Resume hydrochlorothiazide. 10. I will keep off the metoprolol for now given the fact that her blood pressure is under control with two agents. She was recently switched from atenolol to metoprolol and we [place] [address] HISTORY AND PHYSICAL Name: CHARBEL APARICIO Room #: 429-P ST[facility] Bejarano#: [id number] Admission: 01/05/19 ������������������ Attend Phys: Albert Earl MD Discharge: 01/06/19 ������������������ Date of : 32 Report #: [id number] 11. Full code. 12. Routine deep vein thrombosis and proton pump inhibitor prophylaxis. ��������������������������������������������� <ELECTRONICALLY SIGNED> ���������������������������������������� By: Cielo Chauhan MD ��������������������������������������������� 01/14/19 1948 1753 1824 Cielo Chauhan MD /nt
== END 2019-01-06 18:28 | disposition home or self-care (01) ==
LOC: ER 15:53 → EROBS 17:38 → 4E 18:38 → ENTRNSPT 01-06 16:48 → 4E 01-06 18:28
PROVIDERS: Hospitalist; Internal Medicine Nephrology; Physician Assistant; ADMIT Internal Medicine
DX: R55 Syncope and collapse (principal); I12.9 Hypertensive chronic kidney disease with stage 1 through stage 4 chronic kidney disease, or unspecified chronic kidney disease; N18.9 Chronic kidney disease, unspecified; F03.90 Unspecified dementia, unspecified severity, without behavioral disturbance, psychotic disturbance, mood disturbance, and anxiety; E03.9 Hypothyroidism, unspecified; Z90.710 Acquired absence of both cervix and uterus; Z98.890 Other specified postprocedural states; Z79.82 Long term (current) use of aspirin; Z79.899 Other long term (current) drug therapy; Z88.0 Allergy status to penicillin; Z88.8 Allergy status to other drugs, medicaments and biological substances

== ENCOUNTER 2019-04-07 09:13 | Emergency (ER) | payer OTHER ==
[~2019-04-07] VITALS: Ht 152.4 cm; Wt 59.0 kg
[~2019-04-07 09:13] MED LIST changes: +CAPZASIN-HP42.5 GM TOP; +TYLENOL EXTRA500 MG PO
[2019-04-07] MEDS ORDERED: LOPRESSOR25 (09:58)
[2019-04-07] MEDS ORDERED: NEURONTIN 300300 M1 PO (09:59)
[2019-04-07 11:08] VITALS: BP 128/81
[2019-04-09] MEDS ORDERED: CLONIDINE0.1 PO (09:26)
[2019-04-09] MEDS ORDERED: TRAMADOL 50 MG50 MG PO (09:33)
== END 2019-04-07 11:34 | disposition home or self-care (01) ==
LOC: ER 09:13
DX: M54.12 Radiculopathy, cervical region (principal); I10 Essential (primary) hypertension; E03.9 Hypothyroidism, unspecified; F03.90 Unspecified dementia, unspecified severity, without behavioral disturbance, psychotic disturbance, mood disturbance, and anxiety; Z88.7 Allergy status to serum and vaccine; Z88.0 Allergy status to penicillin; Z88.8 Allergy status to other drugs, medicaments and biological substances; Z90.710 Acquired absence of both cervix and uterus

== ENCOUNTER → 2019-04-09 | Outpatient (CLI) | payer OTHER ==
[~2019-04-09] VITALS: Ht 152.4 cm; Wt 61.1 kg
[~2019-04-09] MED LIST changes: +CLONIDINE0.1 PO; +LOPRESSOR25; +NEURONTIN 300300 M1 PO
--- NOTE | ~2019-04-09 | HPC ---
[facility] [place] [address] PAIN MANAGEMENT CONSULTATION Name: CHARBEL APARICIO Room #: REG [facility].#: [id number] Admission: 04/09/19 ������������������ Attend Phys: Jessica Woodard MD Discharge: ������������������ Date of : 32 Report #: [id number] THIS REPORT FOR: //name// CC: Jessica Lay DATE OF SERVICE: 04/09/2019 CHIEF COMPLAINT: Pain in the right hand. HISTORY: The patient is an 89-year-old female who has been seen in the pain clinic because of low back pain. She underwent an epidural steroid injection and has noted improvement in that area. She states that a few months ago, she was in the hospital. An attempt of IV on the right side was unsuccessful. After loss of success the left arm was cannulated since that time. The patient has had some pain and discomfort involving the right hand. From the wrist area down to the dorsum of her arm, she has noted some swelling. This is very sensitive to touch. She is not sure whether or not there has been significant sweating or color change. She notes that it is uncomfortable when she moves it. Has some difficulty moving her fingers because of the discomfort. I am not sure that there is a burning component to it, but it is extremely uncomfortable. She uses her left hand, primarily though she is right-handed. She rates the pain as a 10/10. It is very intense. She has been using gabapentin 300 mg, but only at night. She has used tramadol. She is not sure that this provides a significant amount of pain relief. She has come to the pain clinic because of the severity of pain she is experiencing in her right arm as well as the swelling that has taken place. ALLERGIES: INFLUENZA VACCINES, PENICILLIN, AMLODIPINE. CURRENT MEDICATIONS: Neurontin 300 mg at bedtime, Lopressor 25 mg b.i.d., Tylenol Extra Strength 500 mg, Micardis 40 mg, Zanaflex 2 mg p.r.n. muscle spasms, Synthroid 75 mcg, aspirin 81 mg, Claritin 10 mg. PAIN CLINIC ASSESSMENT/PQRS: 1. The patient is not being treated for osteoarthritis. 2. Pain intensity 06/26. 3. Fall risk. The patient has not fallen in the last 3 months. 4. Blood thinner. The patient is not on a blood thinning medication. 5. Hypertension. The patient is being treated for hypertension. 6. Opioids greater than 6 weeks. The patient is not on a regular opioid regimen. 7. Risk assessment tool, low risk for opioid use. 8. Functional assessment tool 5090. 9. Recreational drug use. The patient denies use of recreational drugs. 10. Alcohol: The patient denies frequent use of alcoholic beverages. [facility] [address] [place] [address] PAIN MANAGEMENT CONSULTATION Name: CHARBEL APARICIO [id number] Admission: 04/09/19 ������������������ Attend Phys: Jessica Woodard MD Discharge: ������������������ Date of : 32 Report #: [id number] PHYSICAL EXAMINATION: GENERAL: The patient is a very pleasant, well-developed, well-nourished black female, appears her stated age. She is alert and oriented x 3. Her affect is appropriate. Speech is fluent. HEENT: Normocephalic, atraumatic. Extraocular eye muscles intact. Sclerae nonicteric. Mucous membranes are moist. NECK: Without adenopathy or JVD. HEART: Regular rate. ABDOMEN: Nontender. EXTREMITIES: Upper extremity muscle strength judged to be 4+/5 on the left. The patient's right arm was placed in her lab. It is being guarded by the left hand. There is swelling associated with this from the wrist to the dorsum of her hand and some slight swelling down into her fingers. Light touch on the ulnar as well as the radial side causes the patient to pull away in the pain and ____. She lifts her right arm with the assistance of the left arm in the mid forearm area. She continues to keep it in a guarded position. Complains of increasing pain and discomfort and movement of her fingers. She is unable to grasp and touch her fingers to her thumb. There is no change in hair pattern as compared to the contralateral side. There is no significant sweating noted. There is no significant color change noted. The patient is not complaining directly of pain, but of a burning pain, but generalized pain. The patient had been wearing a compression garment on her hand, but it is very uncomfortable to put that on at this point. Lower extremity muscle strength judged to be 5-/5 for the major muscle groups in the lower extremity. IMPRESSION: 1. Right hand pain and swelling possibly sympathetically maintained. 2. Dementia. 3. Bladder control problems. 4. Back problems. 5. Right knee pain. 6. Degenerative joint disease. 7. Chronic glomerulonephritis, cervicalgia. 8. Neck pain. 9. Narcolepsy. 10. Polymyalgia rheumatica. 11. Hypothyroidism. 12. Hypertension. RECOMMENDATIONS: We discussed treatment options with the patient. She is quite obviously in severe pain. She requires help removing her jacket. She does complain of pain with her right arm. She guards it as much as possible. Keeps it in an area near her chest. Has some evidence of increased sensitivity to light touch/allodynia. No significant sweating, burning, skin changes/hair changes are noted compared to the contralateral side. There is a significant [facility] [address] [place] [address] PAIN MANAGEMENT CONSULTATION Name: CHARBEL APARICIO Room #: REG CLI ..#: [id number] Admission: 04/09/19 ������������������ Attend Phys: Jessica Woodard MD Discharge: ������������������ Date of : 32 Report #: [id number] amount of swelling. We discussed the treatment possibilities with the patient and her daughter. At this point, we will try a conservative approach. We will have the patient try clonidine to see whether or not this would help with the swelling that is involving her hand. Sometimes reflex sympathetic dystrophy can cause a change in blood flow. We will have the patient slowly increase her gabapentin from 300 mg at bedtime to 300 mg b.i.d. with the thought of increasing it to 300 mg t.i.d. if the patient is able to tolerate it. We will have her try TENS unit to see whether or not this would be helpful. Possibility of a sympathetic nerve block as a possible option. We will have the patient continue to use tramadol to help with the pain as much as possible. She will call us if she has any concerns. We would like to thank you for letting us participate in her care. We hope she continues to improve. ��������������������������������������������� ���������������������������������������� By: ��������������������������������������������� [id number] Jessica Woodard MD /nt
[2019-04-09 08:47] VITALS: BP 174/92
--- NOTE | 2019-04-09 08:51 | NUR ---
Pain Clinic Assessment: 1. History of Osteoarthritis: Not Applicable History of Rheumatoid Arthritis: Not Applicable 2. Height: 5 ft. 0 in. 152.4 cm. Weight: 134.8 lb. oz. 61.145 kg. Patient's BMI: 26.3 3. Vital Signs: BP: 174/92 Pulse: 69 Resp: 16 Temp: 02 Sat: 95 ECG Mon: 4. Pain Intensity: 10 5. Fall Risk: Dizziness: N Needs help standing or walking: N Fallen in the last 3 months: N Fall risk comments: 6. Patient on Blood Thinner: None 7. History of Hypertension: Y 8. Opioid Therapy greater than 6 weeks: N Opiate Contract Signed: 9. Risk Assessment Tool Provided: 0-LOW 10. Functional Assessment Tool: 50/70 11. Recreational Drug Use: Never Drug Type: Tobacco Use: Never Smoker Tobacco Type: Amount or Packs/day: How Many Years: Alcohol Use: No Frequency: Quant:
== END ==
LOC: PAIN 06:47
DX: M54.5 Low back pain (principal); M79.641 Pain in right hand; M25.561 Pain in right knee; M19.90 Unspecified osteoarthritis, unspecified site; F03.90 Unspecified dementia, unspecified severity, without behavioral disturbance, psychotic disturbance, mood disturbance, and anxiety; M54.2 Cervicalgia; N03.9 Chronic nephritic syndrome with unspecified morphologic changes; G47.419 Narcolepsy without cataplexy; M35.3 Polymyalgia rheumatica; E03.9 Hypothyroidism, unspecified; I10 Essential (primary) hypertension; Z88.0 Allergy status to penicillin; Z88.7 Allergy status to serum and vaccine; Z88.8 Allergy status to other drugs, medicaments and biological substances; Z79.82 Long term (current) use of aspirin; Z79.899 Other long term (current) drug therapy

== ENCOUNTER 2019-04-18 19:21 | Inpatient (IN) | payer OTHER ==
[~2019-04-18] VITALS: Ht 154.9 cm; Wt 61.7 kg
[2019-04-18 19:47] VITALS: BP 101/49
[2019-04-18] MEDS ORDERED: TELMISARTAN80 MG PO (20:26)
[2019-04-18 20:27] LABS: HEMATOCRIT 32.3 % (37.0-47.0); HEMOGLOBIN 10.6 gm/dL (12.0-15.0); MCH 29.4 pg (26.0-34.0); MCHC 32.9 g/dL (28.0-37.0); MCV 89.2 fL (80.0-100.0); PLATELET COUNT 326 thou/uL (150-400); RBC 3.62 mil/uL (4.20-5.00); RDW 14.8 % (10.5-14.5); WBC 13.2 thou/uL (4.0-11.0)
[2019-04-18 20:35] LABS: URINE BILIRUBIN NEGATIVE (Negative); URINE BLOOD TRACE (Negative); URINE CLARITY CLEAR; URINE COLOR YELLOW; URINE GLUCOSE-RANDOM* NEGATIVE (Negative); URINE KETONES NEGATIVE (Negative); URINE LEUKOCYTES-REFLEX NEGATIVE (Negative); URINE NITRITE-REFLEX NEGATIVE (Negative); URINE PROTEIN (DIPSTICK) 2+ (Negative); URINE SPECIFIC GRAVITY 1.025 (1.005-1.035)
[2019-04-18 20:35] LABS: CALCIUM 9.3 mg/dL (8.5-10.1); CREATININE 1.4 mg/dL (0.6-1.0); POTASSIUM 4.1 mmol/L (3.5-5.1)
[2019-04-18 20:41] LABS: ALBUMIN 2.3 g/dL (3.4-5.0); TOTAL BILIRUBIN 0.4 mg/dL (<0.1-1.0); TOTAL PROTEIN 7.5 g/dL (6.4-8.2)
[2019-04-18 20:45] LABS: CASTS None Seen /LPF (None Seen); SQUAMOUS None Seen /LPF (0-3); URINE RBC 0-2 Rare /HPF (0-2); URINE WBC-REFLEX 6-15 Few /HPF (0-5)
[2019-04-18 20:46] LABS: AMORPHOUS URATES Many /LPF (None Seen); BACTERIA-REFLEX None Seen /HPF (None Seen)
[2019-04-18 20:56] LABS: ABSOLUTE NEUTROPHILS 8.7 thou/uL (1.4-8.2)
[2019-04-18 21:36] VITALS: BP 136/68
[2019-04-18 21:53] VITALS: BP 136/68
[2019-04-18 22:35] VITALS: BP 141/76
--- NOTE | 2019-04-19 00:32 | NUR ---
NEW ADMISSION AT AROUND 2200. PATIENT AOX4 MAKES NEEDS KNOWN. PATIENT HAS EDEMA ON LLE. PATIENT HAD SEVERE PAIN ON LLE AND BACK, PAIN 10, TO THE SCALE OF 0-10, 10 BEING THE WORST. PAIN MEDS GIVEN PER . PATIENT IN BED ASLEEP AT THIS TIME NO S/S OF PAIN OR DISCOMFORT. PATIENT NEEDS X2 ASSISTANCE WITH ADL, BED MOBILITY, TRANSFER AND TOILETING D/T PATIENT BEING UNABLE TO AMBULATE. DAUGHTER AT BEDSIDE AND HELPED WITH ADMISSION ASSESSMENT. PATIENT SKIN IS WARM AND INTACT, NO BRUISES. FALL PRECAUTION IN PLACE.PATIENT IN BED ASLEEP AT THIS TIME BREATHING REGULAR AND UNLABOURED.
[2019-04-19 05:07] VITALS: BP 128/60
[2019-04-19 05:07] LABS: HEMATOCRIT 30.6 % (37.0-47.0); HEMOGLOBIN 10.1 gm/dL (12.0-15.0); MCH 28.9 pg (26.0-34.0); MCHC 32.8 g/dL (28.0-37.0); MCV 87.9 fL (80.0-100.0); RBC 3.48 mil/uL (4.20-5.00); RDW 14.3 % (10.5-14.5); WBC 10.1 thou/uL (4.0-11.0)
[2019-04-19 05:19] LABS: POTASSIUM 4.2 mmol/L (3.5-5.1)
[2019-04-19 07:41] VITALS: BP 157/79
--- NOTE | 2019-04-19 18:39 | NUR ---
PT STABLE THROUGHOUT SHIFT. PT UP TO CHAIR THROUGHOUT SHIFT. NO C/O PAIN, SOA OR N/V. PT'S FAMILY IN THROUGHOUT DAY. PT RESTING COMFORTABLY, FALLS PRECAUTIONS IN PLACE.
[2019-04-19 20:20] VITALS: BP 122/45
[2019-04-20 04:18] LABS: HEMATOCRIT 30.1 % (37.0-47.0); HEMOGLOBIN 9.9 gm/dL (12.0-15.0); MCH 28.9 pg (26.0-34.0); MCHC 32.9 g/dL (28.0-37.0); MCV 87.9 fL (80.0-100.0); RBC 3.43 mil/uL (4.20-5.00); RDW 14.3 % (10.5-14.5); WBC 9.2 thou/uL (4.0-11.0)
[2019-04-20 04:27] LABS: CALCIUM 8.6 mg/dL (8.5-10.1); POTASSIUM 4.2 mmol/L (3.5-5.1)
--- NOTE | 2019-04-20 05:46 | NUR ---
Pt. rested quietly at intervals during the night when checked on during frequent rounds. She is assitance of two to the bedside comode. She c/o generalized pain and was given po pain med (see emar) with some relief noted. Bed alarm is on.
[2019-04-20 09:00] VITALS: BP 153/69
--- NOTE | 2019-04-20 15:17 | EKG ---
[address] [place] [address] ELECTROCARDIOGRAM REPORT Name: CHARBEL APARICIO Room #: 450-P ADM IN M.R.#: [id number] Admission: 04/18/19 Attend Phys: Felix Dale MD Discharge: Date of : 32 Report #: [id number] THIS REPORT FOR: //name// [facility] ED Test Date: 2019-04-18 Test Time: 19:56:19 Pat Name: CHARBEL APARICIO Department: Room: 450 Gender: F Head Of Data: viktor : 1930 Requested By: Maury Smart Order Number: [id number] MD: Luis Felipe Sims Measurements Intervals [place] Rate: 61 P: 56 MD: 166 QRS: 55 QRSD: 143 T: 25 QT: 443 QTc: 447 Interpretive Statements Sinus rhythm Right bundle branch block Compared to ECG 01/05/2019 16:12:28 No significant change was found Electronically Signed On 04-20-2019 15:17:25 CDT by Luis Felipe Sims [email or web address] <ELECTRONICALLY SIGNED> By: Luis Felipe Sims MD, [facility] 04/20/19 1517 55 55 Luis Felipe Sims MD, [facility] /EPI
[2019-04-20 16:02] VITALS: BP 134/68
--- NOTE | 2019-04-20 16:41 | NUR ---
PT STABLE THROUGHOUT SHIFT. PT UP TO CHAIR FOR MOST OF SHIFT WHICH SHE TOLERATED VERY WELL. FAMILY AT BEDSIDE THROUGHOUT DAY. NO C/O [place]AK, SOA OR N/V. FALLS PRECAUTIONS IN PLACE, PT RESTING COMFORTABLY.
[2019-04-20 19:13] VITALS: BP 154/71
[2019-04-21 03:55] VITALS: BP 151/71
--- NOTE | 2019-04-21 04:21 | NUR ---
Pt. rested quietly at intervals during the night when checked on during frequent rounds. She was assisted to the bedside comode with a gait belt and two person assist. No c/o pain. Sacral abrasion noted and wound pro- tocal initiated. Bed alarm is on.
[2019-04-21 05:48] LABS: HEMATOCRIT 28.3 % (37.0-47.0); HEMOGLOBIN 9.3 gm/dL (12.0-15.0); MCV 87.6 fL (80.0-100.0); RBC 3.23 mil/uL (4.20-5.00)
[2019-04-21 05:51] LABS: MCH 28.8 pg (26.0-34.0); MCHC 32.9 g/dL (28.0-37.0); RDW 14.1 % (10.5-14.5); WBC 16.4 thou/uL (4.0-11.0)
[2019-04-21 05:58] LABS: CALCIUM 8.6 mg/dL (8.5-10.1); CREATININE 0.8 mg/dL (0.6-1.0); POTASSIUM 4.1 mmol/L (3.5-5.1)
[2019-04-21 07:34] VITALS: BP 151/73
--- NOTE | 2019-04-21 09:49 | NUR ---
Pt assessed d/t notification of wounds (sacral abrasion, pink appearance documented). Here for generalized pain, edema. Hx HTN, hypothyroidism, dementia. Spoke to pt and daughter this AM. Appetite low 1.5-2 weeks [employer]PER. Pt denies that heat makes appetite worse, but states she eats small amounts ("if I try to eat too much, I get nauseous). RD recommended eating q 2-3 hrs for small, frequent intake to amount to more nutrition by end of day. Recommended yogurt, peanut butter on unit floor between meals for added kcals/protein. Introduced oral nutrition supplements- daughter denied need at this time. Very weight stable x 2 yrs (130-135# mostly). Remains low nutrition risk.
--- NOTE | 2019-04-21 12:39 | NUR ---
PT ADMITTED RELATED TO GENERALIZED PAIN AND EDEMA. CM REVIEWED CHART AND SPOKE WITH CARE TEAM. CM MET WITH PT AND DTR AT BEDSIDE THIS DAY. PT IS A&O X4. CM ROLE INTRODUCED. PT INDICATED SHE LIVES IN A HOUSE WITH HER DISABLED DTR WITH 4 STEPS TO ENTER AND 6 STEP INSIDE. PT INDICATED SHE HAD USED A FWW TO ASSIST WITH MOBILITY STONE LAYER. PT INDICATED SHE HAD USED [facility] IN THE PAST. CM ASKED IF PT AND DTR WERE RECEPTIVE TO POST ACUTE CARE STAY IF RECOMMENDED UPON DC. THEY INDICATED THAT THEY WERE AND THAT PT HAD JUST WORKED WITH HER AND RECOMMENDED IT. CM PROVIDED SNF LIST FOR THEM TO REVIEW. CM TO FOLLOW INDICATED WITH DC PLANNING.
[2019-04-21 15:26] VITALS: BP 124/58
[2019-04-21 17:10] LABS: ANA INTERPRETATION Negative (())
--- NOTE | 2019-04-21 18:48 | NUR ---
PATIENT VERY PLEASANT AND COOPERATIVE. SAT UP IN CHAIR ALL DAY. NEEDS MODERATE ASSISTANCE TO BSC AND CHAIR. EATING 40-50 PERCENT OF MEALS. DENIED PAIN. FALL PRECAUTIONS IN PLACE.
[2019-04-21 19:26] VITALS: BP 149/72
--- NOTE | 2019-04-22 03:42 | NUR ---
Pt. rested quietly during the night when checked on during frequent rounds. She did c/o bilateral lower leg pain and was given po pain med (see emar) with relief noted. Bed alarm is on.
[2019-04-22 08:29] VITALS: BP 155/80
--- NOTE | 2019-04-22 10:28 | NUR ---
THIS PATIENT HAD 3 INFILTRATED PERIPHERAL IV LINES YESTERDAY. PERIPHERAL VEINS ARE FRAIL AND NOT TOLERATING CATHETER PLACEMENT. SPOKE TO THE PATIENTS NURSE FOR THE PLAN, HE WILL FOLLOW UP TO SEE IF THE PATIENT CAN CHANGE TO PO MEDS OR A MIDLINE IS NECESSARY.
[2019-04-22 16:22] VITALS: BP 110/49
[2019-04-22 19:40] VITALS: BP 141/58
--- NOTE | 2019-04-22 19:52 | NUR ---
PATIENT HAS RESTED IN ROOM THROUGH THE DAY. SHE DID AMBULATE WITH WALKER WITH THERAPY. SHE IS PLEASANTLY CONFUSED. FAMILY HERE TO VISIT. NO COMPLAIN OF PAIN AT THIS TIME. WILL CONT WITH PLAN OF CARE.
--- NOTE | 2019-04-23 03:48 | NUR ---
Assumed care at 1845. Pt resting in chair with family members at bedside. She's AOX4. VSS. Gave her pain medication once for back pain. Pt still doesnt have IV access. Dr. Reyes is are of the arrangements per previous nurse. Both feet are swollen +1. No identified needs at the moment. Call light within reach. Will continue to monitor.
[2019-04-23 06:07] LABS: HEMATOCRIT 31.4 % (37.0-47.0); HEMOGLOBIN 10.4 gm/dL (12.0-15.0); MCH 28.8 pg (26.0-34.0); MCV 87.4 fL (80.0-100.0); RBC 3.59 mil/uL (4.20-5.00); RDW 14.2 % (10.5-14.5); WBC 11.6 thou/uL (4.0-11.0)
[2019-04-23 06:16] LABS: CALCIUM 9.3 mg/dL (8.5-10.1)
[2019-04-23 07:19] VITALS: BP 123/58
[2019-04-23 08:51] LABS: TSH 9.619 uIU/mL (0.358-3.740)
--- NOTE | 2019-04-23 13:14 | NUR ---
TOWARDS POC PT A/O X4, VSS, AFEBRILE, DENIES PAIN. NO CONCERNS VOICED. WILL CONTINUE TO MONITOR.
[2019-04-23 14:08] VITALS: BP 114/55
[2019-04-23 20:18] VITALS: BP 120/55
--- NOTE | 2019-04-24 02:20 | NUR ---
TOWARDS POC Assumed care at 1845. Pt resting in bed. AOX4. VSS. Denies pain. No identified needs at the moment. Call light within reach. Will continue to monitor.
[2019-04-24 07:42] VITALS: BP 145/70
--- NOTE | 2019-04-24 12:59 | NUR ---
DISCHARGE PLANNING. PATIENT IS READY FOR DISCHARGE TODAY. POST [facility]UTE CARE RECOMMENDED AT DISCHARGE. REFERRAL [facility]XED TO [facility], PER PATIENT REQUEST. CALL PLACED TO [facility] TO NOTIFY, ACCEPTING OF PATIENT CLINICALLY AT DISCHARGE. [facility] TO BEGIN INSURANCE AUTH PROCESS AND WILL NOTIFY CM ONCE OBTAINED. UNIT SW AWARE. FOLLOWING.
--- NOTE | 2019-04-24 13:42 | NUR ---
PT STABLE THROUGHOUT SHIFT. NO C/O PAIN, SOA OR N/V. PTS FAMILY AT BEDSIDE. PT UP TO CHAIR FOR MAJORITY OF SHIFT. PT RESTING COMFORTABLY.
--- NOTE | 2019-04-24 13:58 | NUR ---
PT'S FAMILY ASKED THAT REFERRAL BE SENT TO [facility]. THEY INDICATED THAT THEY ARE ABLE TO ACCEPT PT MEDICALLY. THEY ARE SUBMITTING FOR AUTH. CM TO FOLLOW INDICATED WITH DC PLANNING.
[2019-04-24 14:58] VITALS: BP 112/58
[2019-04-24 20:00] VITALS: BP 128/52
--- NOTE | 2019-04-25 03:20 | NUR ---
ASSUMED CARE AROUND 1900. AXOX4. FAMILY AT BEDSIDE. BLE PAIN. MEDICATED PER MD ORDER. NO S/S ACUTE DISTRESS NOTED OR REPORTED AT THIS TIME. WILL CONT TO MONITOR FOR ANY CHANGES IN CONDITION.
[2019-04-25 07:45] VITALS: BP 136/64
[2019-04-25 15:57] VITALS: BP 117/60
--- NOTE | 2019-04-25 20:11 | NUR ---
PT A&OX4, VSS, DENIES PAIN. PATIENT SPENT MOST OF HER DAY IN RECLINER. TOLERATED FOOD WELL. UP TO BEDSIDE COMMODE 1X ASSIST. PATIENT STEADY ON HER FEET WITH WALKER. DENIES SOA/CHEST PAIN. PATIENT TRANSFERRED TO [facility] AT APPROX. 0730. ALL BELONGINGS WITH PATIENT. IV STILL INTACT AND PATENT IN LEFT FOREARM.
[2019-04-25 21:05] VITALS: BP 144/65
--- NOTE | 2019-04-26 04:25 | NUR ---
ASSUMED PT CARE 1899. PT ALERT AND ORIENTED. REASSESMENT COMPLETE. VSS. IV DRESSING C/D/I. PT REPORTS PAIN, SEE EMAR. DENIES /V. DAUGHTER AT BEDSIDE. UP TO BSC. WORKING TOWARD POC. CALL LIGHT AND PERSONAL BELONINGS WITHIN REACH, WILL CONTINUE POC UNTIL EOS.
[2019-04-26 04:52] VITALS: BP 149/64
[2019-04-26 07:42] VITALS: BP 135/73
[2019-04-26] MEDS ORDERED: PREDNISONE 20 M20 M1 PO (10:25)
--- NOTE | 2019-04-26 13:56 | NUR ---
Assessment completed.vss.pt up in chair for all meals.Good appetite.vss. Dr Dale here,dc order noted.Reviewed showcase trimmer note about pt dc today,still waiting for authorization from insurance.Susanna vanessa called and was told that pt wasn't expected today,may be sunday.Dr Dale and pt notified.Will continue to monitor.
[2019-04-26 15:25] VITALS: BP 118/57
[2019-04-26 20:08] VITALS: BP 125/56
[2019-04-26 20:11] VITALS: BP 146/47
--- NOTE | 2019-04-27 03:31 | NUR ---
ASSUMED CARE OF PT @1900 PT ALERT AND ORIENTED AT THIS SHIFT. SITTING UP IN CHAIR AND WATCHING TV. FAMILY IN ROOM VISITING. PT ASSESSED AND POC DONE. PAIN MEDS GIVEN FOR MGMT SEE EMAR. PT UP TO BEDSIDE COMMODE AT NIGHT. PT BACK IN BED FOR THE NIGHT AND SLEPT THROUGH. WILL CONTINUE TO MONITOR TILL EOS.
[2019-04-27 05:29] VITALS: BP 149/67
[2019-04-27 07:55] VITALS: BP 158/78
[2019-04-27 08:00] VITALS: BP 145/48
--- NOTE | 2019-04-27 17:18 | NUR ---
Pt in and out of bed independently.Assessment completed.Vss.Pt up in chair for all meals. Good appetite noted.Dr Reyes here,order noted.Saline lock dc'd per pt request.Pt will be dc to snf in am if authourization accepted.Chair and bed alarm in use.Will continue to monitor.
[2019-04-27 19:51] VITALS: BP 132/74
--- NOTE | 2019-04-28 03:28 | NUR ---
ASSESSMENT COMPLETED.PT'S DTR HERE AT SHIFT CHANGE SHE STATED THAT SHE WOULD WANT HER MOM TO BE EVALUATED FOR REHAB HERE AT THE HOSPITAL FIRST BEFORE GOING TO [facility].PT UP WITH SBA TO THE BR.EDEMA TO HER FARHEEN ANKLES.PT DENIED PAIN,N/V SO AFR.PT RESTING COMFORTABL;Y ON HER BED AT THIS TIME.CALL LIGHT WITHIN REACH.
[2019-04-28 03:52] VITALS: BP 141/62
[2019-04-28 06:02] LABS: CALCIUM 8.9 mg/dL (8.5-10.1); CREATININE 1.1 mg/dL (0.6-1.0)
--- NOTE | 2019-04-28 08:04 | NUR ---
PATIENT CARE WAS ASSUMED AT 0715.PATIENT IS ALERT AND ORIENTED X4.PATIENT IS ABLE TO AMBULTE ON HER OWN.PTHAS NO IV ACCESS.NO COMPLAINS OF PAIN AT THIS TIME.PATIENT HAS NO SIGNS OF EDMEA IN HER LOWER EXTREMITIES.PT IS CURRENTLY WAITING ON PLACEMENT FOR REHAB.PATIENT'S FAMILY PERFER PLACEMENT TO BE AT [address] [place], [place] [address]AB, THEN SECOND CHOICE [facility]ING [facility].PT HAS CALL LIGHT,PHONE, AND PERSONAL BELONGINGS WITHIN REACH.
[2019-04-28 08:12] VITALS: BP 160/79
--- NOTE | 2019-04-28 10:51 | NUR ---
PATIENT HAS SMALL OPENING ON COCCYX AREA, THAT WAS ADRESSED BY WOUND CARE NURSE.PATIENT IS ABLE TO AMBULATE AND MOVE ON HER OWN.BARRIER CREAM WILL BE PLACED ON PATIENT DAILY NEEDED.
--- NOTE | 2019-04-28 12:25 | NUR ---
WOUND CONSULT; AN ABRASION TO THE SACRUM/COCCYX AREAS IDENTIFIED. THIS IS RELATED TO FRICTION SHEARING. NO S/S OF INFECTION NOTED. THE PATIENT WAS ABLE TO STAND FOR THE ASSESSMENT. RECOMMENDATIONS; ZGUARD CREAM DAILY/PRN WITH FREQUENT POSITION CHANGES. DISCUSSED WITH BRANDYN
--- NOTE | 2019-04-28 13:18 | NUR ---
FAXED TODAY'S OT NOTES TO [facility] SPOKE WITH [facility] IN ADM SHE RECEIVED OT NOTES AND WILL SUBMIT THEM FOR AUTH. DCP TO FOLLOW.
--- NOTE | 2019-04-28 17:14 | NUR ---
[facility] INDICATED THAT INSURANCE DENIED COVERAGE FOR SKILLED REHAB STAY. CM NOTIFIED PHYSICIAN AND HE INDICATED THAT HE DIDN'T WANT TO COMPLETE APPEAL PT WAS WALKING 250FT MIN ASSIST AND WAS SBA FOR ADLS. HE INDICATED PT COULD DC HOME TOMORROW WITH HH SERVICES. CM TO FOLLOW UP WITH DTRS . CM TO TO FOLLOW INDICATED WITH DC PLANNING.
[2019-04-28 19:22] VITALS: BP 150/58
--- NOTE | 2019-04-29 02:54 | NUR ---
ASSUMED CARE OF PT @1900 PT A&OX4 AT THIS SHIFT. UP AD STACEY. POC DONE AND EVENING MEDS GIVEN. AWAITING D/C TOMORROW WILL CONTINUE TO MONITOR TILL EOS.
[2019-04-29 04:32] VITALS: BP 149/56
[2019-04-29 12:45] VITALS: BP 144/67
[2019-04-29] MEDS ORDERED: PREDNISONE 10 M10 MG PO (13:16)
--- NOTE | 2019-04-29 13:27 | NUR ---
PT DISCHARGING TODAY TO HOME WITH HH SPOKE WITH [facility] ADM LIASON THEY HAVE RECEIVED DC ORDERS AND WILL NOTIFY PT TIME OF VISITS.
[2019-04-29 13:39] VITALS: BP 144/67
--- NOTE | 2019-04-29 14:25 | NUR ---
DC ORDER RECEIVED. NO IV NOTED, DISCHARGE INSTRUCTIONS, F/U APPOINTMENT AND SCRIPT REVIEWED WITH PT, VOLUNTEER ESCORTED PT TO MAIN ENTRANCE BY W/C.
== END 2019-04-29 14:38 | disposition home health service (06) | DRG 553 ==
LOC: ER 19:21 → 4E 21:02 → 4W 21:02 → EROBS 21:02 → 4W 21:54 → 4E 04-25 19:48
PROVIDERS: Emergency Medicine; Hospitalist; Nurse Practitioner Family; ADMIT Hospitalist
DX: M17.12 Unilateral primary osteoarthritis, left knee (principal); R53.2 Functional quadriplegia; E43 Unspecified severe protein-calorie malnutrition; M25.462 Effusion, left knee; M35.3 Polymyalgia rheumatica; E03.9 Hypothyroidism, unspecified; D72.829 Elevated white blood cell count, unspecified; G89.29 Other chronic pain; M54.9 Dorsalgia, unspecified; G47.419 Narcolepsy without cataplexy; I10 Essential (primary) hypertension; F03.90 Unspecified dementia, unspecified severity, without behavioral disturbance, psychotic disturbance, mood disturbance, and anxiety; Z90.710 Acquired absence of both cervix and uterus; Z79.82 Long term (current) use of aspirin; Z88.0 Allergy status to penicillin; Z88.8 Allergy status to other drugs, medicaments and biological substances; Z68.25 Body mass index [BMI] 25.0-25.9, adult
CPT/HCPCS: 10040; 10783

== ENCOUNTER → 2019-09-24 | Outpatient (CLI) | payer OTHER ==
[~2019-09-24] VITALS: Ht 154.9 cm; Wt 70.5 kg
[~2019-09-24] MED LIST changes: +PREDNISONE 10 M10 MG PO; +PREDNISONE 20 M20 M1 PO
[2019-09-24 11:26] VITALS: BP 164/90
--- NOTE | 2019-09-24 11:34 | NUR ---
Pain Clinic Assessment: 1. History of Osteoarthritis: Not Applicable History of Rheumatoid Arthritis: Not Applicable 2. Height: 5 ft. 1 in. 154.9 cm. Weight: 155.4 lb. oz. 70.489 kg. Patient's BMI: 29.4 3. Vital Signs: BP: 164/90 Pulse: 74 Resp: 16 Temp: 02 Sat: 96 ECG Mon: 4. Pain Intensity: 8-9 5. Fall Risk: Dizziness: N Needs help standing or walking: Y Fallen in the last 3 months: N Fall risk comments: 6. Patient on Blood Thinner: None 7. History of Hypertension: Y 8. Opioid Therapy greater than 6 weeks: N Opiate Contract Signed: 9. Risk Assessment Tool Provided: 0-LOW 10. Functional Assessment Tool: 50 11. Recreational Drug Use: Never Drug Type: Tobacco Use: Never Smoker Tobacco Type: Amount or Packs/day: How Many Years: Alcohol Use: No Frequency: Quant:
--- NOTE | 2019-10-08 16:47 | HPC ---
[facility] [address] [place] [address] PAIN MANAGEMENT CONSULTATION Name: CHARBEL APARICIO Room #: REG [facility].#: [id number] Admission: 09/24/19 Attend Phys: Jessica Woodard MD Discharge: Date of : 32 Report #: [id number] THIS REPORT FOR: //name// CC: Jessica Lay DATE OF SERVICE: 09/24/2019 PRIMARY CARE PHYSICIAN: Silvia Lay MD CHIEF COMPLAINT: Low back pain. HISTORY: The patient is an 89-year-old female who has been seen in the pain clinic because of chronic pain. She did have some pain and discomfort in her right hand. This has improved. At this juncture, she is experiencing pain and discomfort in the lower portion of her back and notes that the pain is 8-9/10 in intensity. The right back continues to be painful in spite of use of tizanidine. She has also been using tramadol and not finding this very effective. She describes it as right upper back pain with a sharp sensation and stabbing in nature. States that once the pain starts little changes its character. She notes that it improves while she is using her TENS unit. ALLERGIES: INFLUENZA VACCINES, PENICILLIN, AMLODIPINE. PAIN CLINIC ASSESSMENT AND PQRS: 1. History of osteoarthritis. The patient is not being treated for osteoarthritis. She is not being treated for rheumatoid arthritis. 2. Height 5 feet 1 inch, weight 155 pounds, BMI is 29.4. 3. Vital signs: Blood pressure is 164/90, pulse 75, respiratory rate 16, room air saturation is 96%. 4. Pain intensity /10. 5. Fall risk. The patient has not fallen in the last 3 months. 6. Blood thinner. The patient is not on a blood thinning medication. 7. Hypertension. The patient is being treated for hypertension. 8. Opioids. The patient is not on a regular opioid regimen. 9. Risk assessment tool, low for opioid use. 10. Functional assessment tool, 50/70. 11. Recreational drug use: The patient denies. 12. Tobacco: The patient has never smoked. 13. Alcohol. The patient denies use of alcohol. PHYSICAL EXAMINATION: GENERAL: The patient is a well-developed, well-nourished black female, appears her stated age. She is alert and oriented x 3. Her affect is appropriate. Speech is fluent. HEENT: Normocephalic, atraumatic. Extraocular eye muscles intact. The patient [address] [address] PAIN MANAGEMENT CONSULTATION Name: CHARBEL APARICIO [id number] Admission: 09/24/19 Attend Phys: Jessica Woodard MD Discharge: Date of : 32 Report #: [id number] is accompanied by her daughter. A second daughter came as well. NECK: Without adenopathy or JVD. HEART: Regular rate. ABDOMEN: Nontender. EXTREMITIES: Upper extremity muscle strength judged to be 4+/5 for the major muscle groups in the upper extremity. The patient has less pain and discomfort in the right arm. She complains of some pain in the shoulders as well as low back area. The patient without significant scoliosis or kyphosis. Impression: 1. Myofascial pain. 2. Low back pain in the past with feeling of crawling in her calf. 3. Sharp pain in the left as well as the right shoulder. 4. Dementia. 5. Blood thinner control problems. 6. Back problems. 7. Right knee pain. 8. Degenerative joint disease, generalized. 9. Chronic glomerular nephritis. 10. Cervicalgia. 11. Neck pain. 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 13. Polymyalgia rheumatica. 14. Hypothyroidism. 15. Hypertension. RECOMMENDATIONS: We discussed treatment options with the patient and her daughters. The patient is having pain and discomfort, which is myofascial in nature. Risks and benefits of a trigger point injection were discussed. The possible complications of the procedure were reviewed as well. At this juncture, the patient is having pain and discomfort in the back area. A trigger point in the latissimus dorsi was noted. Palpation in this area did reproduce the patient's pain. This area was sterilely prepped with a Betadine solution. A 25-gauge needle was then advanced into the area of discomfort. The patient stated that this did reproduce her discomfort. A total of 40 mg triamcinolone with 8 mL of 0.5% bupivacaine was injected. The patient tolerated the procedure well. She remained in the Pain Clinic for an appropriate amount of time. She will follow up in the future as needed. We would like to thank you for letting us participate in her care. We hope she continues to improve. <ELECTRONICALLY SIGNED> By: Jessica Woodard MD 10/08/19 1647 [id number] Jessica Woodard MD /QUIN
== END | disposition home or self-care (01) ==
LOC: PAIN 09-23 12:23
DX: M79.18 Myalgia, other site (principal); G89.29 Other chronic pain; M54.5 Low back pain; I10 Essential (primary) hypertension; E03.9 Hypothyroidism, unspecified; M19.90 Unspecified osteoarthritis, unspecified site; Z98.890 Other specified postprocedural states; Z79.899 Other long term (current) drug therapy; Z86.73 Personal history of transient ischemic attack (TIA), and cerebral infarction without residual deficits; Z88.0 Allergy status to penicillin; Z88.8 Allergy status to other drugs, medicaments and biological substances

== ENCOUNTER 2021-06-21 18:49 | Inpatient (IN) | payer MEDICARE, OTHER ==
[~2021-06-21] VITALS: Ht 152.4 cm; Wt 70.3 kg
[2021-06-21 18:49] VITALS: BP 135/70
[2021-06-21 19:29] LABS: BASOPHILS 0.8 % (0.0-2.0); LYMPHOCYTES 25.5 % (24.0-44.0); MCH 28.7 pg (26.0-34.0); MCHC 32.3 g/dL (28.0-37.0); MCV 88.9 fL (80.0-100.0); MONOCYTES 12.4 % (1.0-8.0); PLATELET COUNT 261 thou/uL (150-400); POLYS 57.3 % (36.0-66.0); RBC 3.83 mil/uL (4.20-5.00); RDW 14.1 % (10.5-14.5); WBC 8.7 thou/uL (4.0-11.0)
[2021-06-21 19:39] LABS: ANION GAP 9 mmol/L (7-16); BUN 32 mg/dL (7-18); CALCIUM 9.2 mg/dL (8.5-10.1); CHLORIDE 102 mmol/L (98-107); CO2 26 mmol/L (21-32); CREATININE 2.4 mg/dL (0.6-1.0); GLUCOSE 118 mg/dL (74-106); POTASSIUM 4.1 mmol/L (3.5-5.1); SODIUM 137 mmol/L (136-145)
[2021-06-21 19:46] LABS: ALBUMIN 3.4 g/dL (3.4-5.0); SGOT 18 U/L (15-37); SGPT 15 U/L (14-59); TOTAL BILIRUBIN 0.1 mg/dL (0.2-1.0); TOTAL PROTEIN 7.3 g/dL (6.4-8.2)
[2021-06-21 19:51] LABS: URINE BILIRUBIN NEGATIVE (Negative); URINE BLOOD TRACE (Negative); URINE COLOR YELLOW; URINE GLUCOSE-RANDOM* NEGATIVE (Negative); URINE KETONES NEGATIVE (Negative); URINE NITRITE-REFLEX NEGATIVE (Negative); URINE PROTEIN (DIPSTICK) NEGATIVE (Negative); URINE SPECIFIC GRAVITY <= 1.005 (1.005-1.035); URINE UROBILINOGEN 0.2 E.U./dl (0.2-1.0)
[2021-06-21 19:52] LABS: URINE CLARITY SL HAZY; URINE LEUKOCYTES-REFLEX 1+ (Negative)
[2021-06-21 19:57] LABS: SQUAMOUS 0-3 Few /LPF (0-3)
[2021-06-21 19:58] LABS: BACTERIA-REFLEX 1-9 Few /HPF (None Seen); CASTS None Seen /LPF (None Seen); CRYSTALS None Seen /LPF (None Seen); URINE RBC 1-2 Rare /HPF (NONE SEEN); URINE WBC-REFLEX 0-5 Rare /HPF (0-5)
[2021-06-22 00:01] VITALS: BP 119/59
[2021-06-22 02:59] LABS: CALCIUM 8.4 mg/dL (8.5-10.1); POTASSIUM 4.6 mmol/L (3.5-5.1)
--- NOTE | 2021-06-22 04:54 | NUR ---
ALL CHARTING COMPLETED BY STUDENT REVIEWED AND CONFIRMED
--- NOTE | 2021-06-22 07:00 | EKG ---
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
[2021-06-22 07:23] VITALS: BP 115/58
[2021-06-22 09:12] VITALS: BP 132/80
[2021-06-22] MEDS ORDERED: LEVOTHYROXINE75 MCG PO (11:15)
[2021-06-22] MEDS ORDERED: CLOPIDOGREL75 MG PO (11:15)
[2021-06-22] MEDS ORDERED: NEURONTIN 300M300 M2 PO (11:16)
[2021-06-22] MEDS ORDERED: NAMZARIC 28 MG1 EACH PO (11:16)
[2021-06-22] MEDS ORDERED: NORVASC5 MG PO (11:17)
[2021-06-22] MEDS ORDERED: TELMISARTAN80 MG PO (11:18)
[2021-06-22 12:36] VITALS: BP 128/71
[2021-06-22 16:00] VITALS: BP 132/81
--- NOTE | 2021-06-22 16:04 | NUR ---
TODAY THIS PT HAS BEEN IN HER ROOM WITH FAMILY AND SHE HAS BEEN COOPERATIVE AND TOLERATING HER MEDICATIONS WELL. SHE HAS BEEN USING THE BATHROOM WITH HELP FROM FAMILY AND HAS BEEN EATING HER MEALS. SHE IS OTHERWISE AWAITING FOR THE NEXT PLAN.
--- NOTE | 2021-06-22 16:12 | NUR ---
PT ADMITTED RELATED TO SEPSIS, PNA, UTI. CM REVIEWED CHART AND SPOKE WITH CARE TEAM. CM MET WITH PT AND SISTER MEGHNA AT BEDSIDE THIS DAY. PT APPEARED TO BE A&O X1. CM ROLE INTRODUCED. MEGHNA INDICATED THAT PT RESIDES IN A SENIOR HOUSEING COMPLEX CALLED [facility]. SHE INDICATED THAT THERE AREN'T ANY STEPS. SHE STATED THAT PT USES A 4WW TO ASSSIT WITH MOBILITY. MEGHNA INDICATED THAT ONCE OF PT'S SISTER NATASHA IS HER PAID CAREGIVER THROUGH THE [facility]. SHE INDICATED THAT PT HAD HH IN THE PAST BUT DIND'T INDICATED ANY SKILLED HX. CM CALLED PT'S DTR AND SHE CONFIRMED THE ABOVE. CM TO LEAVE [facility] SNF LIST FOR REVIEW SHE INDICTED THEY AREN'T SURE TO PLAN UPON DC OF YET. CM FOLLOWING REGARDING DC PLANNING.
[2021-06-22 21:00] VITALS: BP 119/67
--- NOTE | 2021-06-23 01:43 | NUR ---
ASSUMED CARE OF PT AT 1900. BEDSIDE REPORT RECIEVED. FAMILY MEMBERS AT BEDSIDE. PT AWAKE AND ALERT, EXPERIENCING CONFUSION. DENIES ANY PAIN AT THIS TIME. IVF IINFUSING ORDERED. BED ALARM GOING OFF, PT UP AND PULLED IV OUT. PT WANTING TO USE BSC PER PT. REDIRECTED PT BACK TO BED, FALL RISK EDUCATION PROVIDED. NEW IV PLACED IN RIGHT WRIST. FALL PRECAUTIONS IN PLACEM CALL LIGHT IN REACH
[2021-06-23 05:43] LABS: HEMATOCRIT 31.3 % (37.0-47.0); HEMOGLOBIN 10.4 gm/dL (12.0-15.0); MCH 29.5 pg (26.0-34.0); MCHC 33.3 g/dL (28.0-37.0); MCV 88.6 fL (80.0-100.0); RBC 3.54 mil/uL (4.20-5.00); RDW 14.3 % (10.5-14.5); WBC 7.3 thou/uL (4.0-11.0)
[2021-06-23 05:58] LABS: CALCIUM 8.3 mg/dL (8.5-10.1); CREATININE 1.5 mg/dL (0.6-1.0); POTASSIUM 4.5 mmol/L (3.5-5.1)
[2021-06-23 07:48] VITALS: BP 132/75
--- NOTE | 2021-06-23 15:23 | NUR ---
TODAY THIS PT HAS BEEN ASLEEP FOR MOST OF THE DAY BUT SHE HAS BEEN AWAKE TO EAT MEALS AND USE THE BATHROOM WITH ASSISTANCE. SHE HAS BEEN OTHERWISE IN HER ROOM WITH FAMILY AWAITING FOR THE NEXT PLAN.
[2021-06-23 16:00] VITALS: BP 120/60
--- NOTE | 2021-06-23 16:38 | NUR ---
CM CALLED AND LEFT VM WITH PT'S DTR SHANA MARIE. CM MET WITH PT'S FAMILY MEMBER MEGHNA AT BEDSIDE THIS AFTERNOON. SHE INDICATED THAT SHE PLANS TO TAKE PT TO HER HOUSE UPON ANTICPATED DC TOMORROW Sunday06/24/21. SHE INDICATED THAT SHE DOESN'T THINK HH UPON DC WILL BE NEEDED OR BENEFICIAL. CM INDICATED THAT SHOULD SHE GET PT HOME AND WANT HH THAT IT CAN BE INITIATED THROUGH HER PCP. MEGHNA'S ADDRESS IS [address] [place] [address]. SHE INDICATED THAT THERE ARE 4 STEPS TO ENTER THE HOME. CM FOLLOWING INDICATED WITH DC PLANNING.
[2021-06-23 20:11] VITALS: BP 138/79
--- NOTE | 2021-06-23 23:11 | NUR ---
PT ALERT AND ORIENTED X 1, CONFUSED. UP TO BSC WITH ASSIST X 1 WITHOUT DIFFICULTY. PT TOOK HS MEDS WITHOUT DIFFICULTY. PT DENIES PAIN OR DISCOMFORT. BED ALARM ON FOR SAFETY. PT APPEARS TO BE SLEEPING ON HOURLY ROUNDS.
[2021-06-24 04:34] LABS: HEMATOCRIT 30.6 % (37.0-47.0); HEMOGLOBIN 9.9 gm/dL (12.0-15.0); MCH 29.6 pg (26.0-34.0); MCHC 32.2 g/dL (28.0-37.0); MCV 91.8 fL (80.0-100.0); RBC 3.34 mil/uL (4.20-5.00); RDW 14.7 % (10.5-14.5); WBC 8.4 thou/uL (4.0-11.0)
[2021-06-24 04:39] LABS: CALCIUM 8.2 mg/dL (8.5-10.1); CREATININE 1.5 mg/dL (0.6-1.0); POTASSIUM 4.7 mmol/L (3.5-5.1)
[2021-06-24 07:23] VITALS: BP 116/85
[2021-06-24 11:22] VITALS: BP 98/51
[2021-06-24] MEDS ORDERED: CIPRO250 M2 PO (11:55)
[2021-06-24 12:07] VITALS: BP 98/51
--- NOTE | 2021-06-24 14:09 | NUR ---
CARE TEAM INDICATED THAT PT IS MEDICALLY STABLE TO DC HOME THIS DAY. CM MET WITH PT'S SISTER MEGHNA AT BEDSIDE THIS DAY AND SHE DOESN'T THINK HH UPON DC WILL BE NEEDED OR BENEFICIAL. CM INDICATED THAT SHOULD SHE GET PT HOME AND WANT HH THAT IT CAN BE INITIATED THROUGH HER PCP. MEGHNA'S ADDRESS IS [address] [place] [address]. SHE INDICATED THAT THERE ARE 4 STEPS TO ENTER THE HOME. MEGHNA INDICATED THAT SHE WILL TRANSPORT PT HOME THIS DAY. NO OTHER CM INTERVENTION INDICATED CASE CLOSED.
--- NOTE | 2021-06-24 14:14 | NUR ---
ASSUMED CARE OF PT AT 0700. PT IS PLEASANTLY CONFUSED, BUT ALERT. FOLLOWS COMMANDS. PT HAD NO COMPLAINTS THROUGHOUT THE MORNING, VSS. WILL DISCHARGE HOME WITH HOME HEALTH AND FAMILY ASSISTANCE. ALL AFTERNOON MEDS GIVEN, CLEANED AND CHANGED, AND TYLENOL GIVEN PRIOR TO DISCHARGE. WENT OVER DISCHARGE PAPERWORK WITH PATIENT AND DAUGHTER, DISCHARGIN HOME NOW.
== END 2021-06-24 14:18 | disposition home health service (06) | DRG 682 ==
LOC: ER 18:49 → EROBS 22:24 → 4W 22:24 → EROBS 22:25 → 4W 06-22 07:32
PROVIDERS: Nurse Practitioner; Nurse Practitioner Family; ADMIT Hospitalist; ATTEND Hospitalist
DX: N17.0 Acute kidney failure with tubular necrosis (principal); G93.41 Metabolic encephalopathy; N39.0 Urinary tract infection, site not specified; Z79.82 Long term (current) use of aspirin; F03.90 Unspecified dementia, unspecified severity, without behavioral disturbance, psychotic disturbance, mood disturbance, and anxiety; M19.90 Unspecified osteoarthritis, unspecified site; G47.419 Narcolepsy without cataplexy; G89.29 Other chronic pain; M54.9 Dorsalgia, unspecified; R53.81 Other malaise; I10 Essential (primary) hypertension; M54.2 Cervicalgia; E03.9 Hypothyroidism, unspecified; E86.0 Dehydration; M35.3 Polymyalgia rheumatica; Z20.822 Contact with and (suspected) exposure to COVID-19; Z88.0 Allergy status to penicillin; Z88.7 Allergy status to serum and vaccine; Z88.8 Allergy status to other drugs, medicaments and biological substances; Z90.710 Acquired absence of both cervix and uterus; Z79.899 Other long term (current) drug therapy
CPT/HCPCS: 10040